=== PATIENT | female | born 1955 | race Caucasian/White ===

== ENCOUNTER 2020-08-06 10:29 | Outpatient (CLI) | payer MEDICARE, SELFPAY ==
[2020-08-06 10:57] LABS: Basophils Absolute Auto 0.1 K/mm3 (0.0-0.1); Basophils Percent Auto 0.9 % (0.2-1.2); Eosinophils Absolute Auto 0.3 K/mm3 (0-0.3); Eosinophils Percent Auto 4.5 % (0-4.4); Hematocrit 23.7 % (37.0-47.0); Immature Granulocyte Absolute 0.02 K/mm3 (0.00-0.031); Immature Granulocyte Percent A 0.3 % (0-0.5); Lymphocytes Absolute Auto 1.51 K/mm3 (0.9-3.2); Lymphocytes Percent Auto 23.4 % (18.3-44.2); Mean Corpuscular HGB Conc 27.8 g/dl (32-36); Mean Corpuscular Hemoglobin 22.8 pg (26-34); Mean Corpuscular Volume 81.7 fl (80-100); Mean Platelet Volume 9.8 fl (7.4-10.4); Monocytes Absolute Auto 0.7 K/mm3 (0.1-0.6); Monocytes Percent Auto 10.4 % (2.6-8.5); Neutrophils Absolute Auto 3.9 K/mm3 (1.3-6.7); Neutrophils Percent Auto 60.5 % (45.5-73.1); Platelet Count Result 320 k/mm3 (150-375); Red Cell Distribution Width 18.8 % (11.5-14.5); White Blood Count 6.5 K/mm3 (4.5-10.0)
[2020-08-06 11:00] LABS: Hemoglobin 6.6 g/dL (12.0-15.0)
[2020-08-06 11:01] LABS: Platelet Estimate Adequate (Adequate)
[2020-08-06 11:02] LABS: Hypochromasia 2+ (NORMAL)
[2020-08-06 11:03] LABS: Ovalocytes 1+ (NORMAL); Poikilocytosis 1+ (NORMAL)
[2020-08-06 12:28] LABS: Iron 15 ug/dL (37-170)
[2020-08-06 12:34] LABS: Alanine Aminotransferase 16 U/L (4-35); Albumin Level 3.5 g/dL (3.5-5.1); Alkaline Phosphatase 173 U/L (38-126); Anion Gap 6 mmol/L (8-16); Aspartate Amino Transferase 21 U/L (14-36); Bilirubin,Total 0.3 mg/dL (0.2-1.3); Blood Urea Nitrogen 7 mg/dL (7-17); Calcium 9.1 mg/dL (8.4-10.2); Carbon Dioxide 30 mmol/L (22-30); Chloride 103 mmol/L (98-107); Estimated Glomerular Filt Rate > 60; Glucose 76 mg/dL (65-105); Potassium 4.2 mmol/L (3.4-5.0); Sodium 139 mmol/L (137-145)
[2020-08-06 12:37] LABS: Percent Iron Saturation 4 % (20-50)
[2020-08-06 12:59] LABS: Carcinoembryonic Antigen 2.1 ng/mL (0.0-3.0)
== END 2020-08-06 10:30 | disposition home or self-care (01) ==
PROVIDERS: Visit Provider Internal Medicine Hematology & Oncology
DX: C18.2 Malignant neoplasm of ascending colon (principal)
CPT/HCPCS: 36415; 80053; 82378; 82728; 83540; 83550; 85025

== ENCOUNTER 2020-08-07 09:35 | Outpatient (RCR) | payer OTHER, MEDICARE, MEDICAID, SELFPAY ==
[2020-08-07] VITALS (9 sets, daily range): BP systolic 98–119; BP diastolic 49–60; PULSE 60–74; RESP 13–20; TEMP 36.6–37; O2SAT 97–100
[2020-08-07] MEDS: diphenhydrAMINE HCl CAP 25 MG CAPSULE PO (13:45)
[2020-08-07] MEDS: ACETAMINOPHEN 325 MG TABLET 650 MG PO (13:45)
== END 2020-11-05 23:59 | disposition home or self-care (01) ==
LOC: ANHCPCTRAN 09:35
PROVIDERS: PCP Family Medicine; Visit Provider Internal Medicine Hematology & Oncology
DX: C18.2 Malignant neoplasm of ascending colon (principal)
CPT/HCPCS: 36415; 36430; 86850; 86900; 86901; 86923; A9270; J1940; P9016

== ENCOUNTER 2020-09-02 01:25 | Day surgery (SDC) | payer MEDICARE, MEDICAID, SELFPAY ==
[2020-08-28 14:44] VITALS: BMI 37.5
--- NOTE | 2020-08-28 15:15 | PC.NURSE ---
1515 SPOKE WITH NURSE ORNELAS AT [facility] ABOUT PATIENT. INSTRUCTED CECI ON PREPARATIONS FOR PATIENT'S UPCOMING COLONOSCOPY. INSTRUCTED: ARRIVAL AND PROCEDURE TIME, HOSPITAL ENTRANCE TO USE AND PATIENT/TRANSPORTED MUST WEAR MASK, NPO STATUS AFTER MIDNIGHT BEFORE PROCEDURE DATE, MEDICATIONS TO HOLD AND INSTRUCTED TO REVIEW INSTRUCTION SHEETS FROM DR. QUIROGA'S OFFICE AND FOLLOW BOWEL PREP INSTRUCTIONS, INSTRUCTED NO JEWELRY, NO LOTION, WEAR COMFORTABLE CLOTHING. CORWIN AGUILERA
[2020-09-02 11:08] VITALS: BP 119/62; PULSE 60; RESP 16; TEMP 36.6; O2SAT 100; BMI 37.7
[2020-09-02] MEDS: LACTATED RINGERS 1,000 ML 150 ML IV CONT (11:25)
--- NOTE | 2020-09-02 12:05 | WPDHPUPDATE1 ---
History and Physical Update Update Date/Time: 09/02/20 12:05 History and Physical has been reviewed, including an updated exam of the patient. There are NO changes in the patient's condition. Risks, benefits, and alternatives have been discussed and questions answered. Patient agrees to proceed with procedure.
[2020-09-02 12:39] VITALS: BP 104/68; PULSE 63; RESP 17; O2SAT 98
[2020-09-02 12:49] VITALS: BP 120/73; PULSE 63; RESP 13; O2SAT 98
--- NOTE | 2020-09-02 13:47 | SUR.PHASEII ---
discharge note faxed to [facility] with confirmation received.
== END 2020-09-02 13:20 | disposition home or self-care (01) ==
PROVIDERS: PCP Family Medicine; Visit Provider Internal Medicine Gastroenterology
PROC: 0DJD8ZZ Inspection of Lower Intestinal Tract, Via Natural or Artificial Opening Endoscopic (ICD-10-PCS; CPT 45378; principal; 2020-09-02 12:00)
DX: D12.2 Benign neoplasm of ascending colon (principal); D64.9 Anemia, unspecified; K21.9 Gastro-esophageal reflux disease without esophagitis; K44.9 Diaphragmatic hernia without obstruction or gangrene; K64.4 Residual hemorrhoidal skin tags; I25.2 Old myocardial infarction; J44.9 Chronic obstructive pulmonary disease, unspecified; M48.00 Spinal stenosis, site unspecified; F32.9 Major depressive disorder, single episode, unspecified; Z95.0 Presence of cardiac pacemaker; Z86.73 Personal history of transient ischemic attack (TIA), and cerebral infarction without residual deficits; Z99.3 Dependence on wheelchair; Z86.718 Personal history of other venous thrombosis and embolism; Z79.01 Long term (current) use of anticoagulants; Z87.11 Personal history of peptic ulcer disease; Z80.3 Family history of malignant neoplasm of breast
CPT/HCPCS: 45385; 45380; 88305; J2704; J7120

== ENCOUNTER 2020-11-19 00:09 | Day surgery (SDC) | payer MEDICARE, MEDICAID, SELFPAY ==
[2020-11-12 10:39] VITALS: BMI 35.9
--- NOTE | 2020-11-12 10:54 | PC.NURSE ---
SPOKE WITH JOSE ALFREDO AT [facility] REGARDING ELIQUIS ORDER FROM DR. WILLS OFFICE TO HOLD 2 DAYS PRIOR-LAST DOSE 11/16/2020, ARRIVAL INFORMATION REVIEWED AND MEDS ETC.
[2020-11-19] MEDS: LACTATED RINGERS 1,000 ML 150 ML IV CONT (06:15)
[2020-11-19 06:37] VITALS: BP 120/62; PULSE 59; RESP 18; TEMP 36.6; O2SAT 98; BMI 36.1
--- NOTE | 2020-11-19 07:04 | WPDANESEPPF ---
Anes - Initial Pre Proc Eval Procedure: Operation Date: 11/19/20 07:00 Proposed Procedures p Esophagogastroduodenoscopy - Shahab Beaver MD s [facility] Capsule Endoscopy - Shahab Beaver MD Date/Time: 11/19/20 07:04 Surgeon: Shahab Beaver MD Pre Op Diagnosis: Anemia Patient Data Age: 65 Gender: F Height: 5 ft Weight: 84 kg Last Vital Signs Temp 97.8 F 11/19/20 06:37 Pulse 59 L 11/19/20 06:37 Resp 18 11/19/20 06:37 BP 120/62 11/19/20 06:37 Pulse Ox 98 11/19/20 06:37 Allergies Allergy/AdvReac Type Severity Reaction Status Date / Time aspirin Allergy Intermediate Hives Verified 11/19/20 06:32 codeine Allergy Intermediate Headache Verified 11/19/20 06:32 ibuprofen Allergy Intermediate Hives Verified 11/19/20 06:32 morphine Allergy Intermediate Hives Verified 11/19/20 06:32 NSAIDS (Non-Steroidal Allergy Intermediate Hives Verified 11/19/20 06:32 Anti-Inflamma sulfamethoxazole Allergy Intermediate Hallucinati Verified 11/19/20 06:32 [From ng Sulfamethoxazole-Trimethoprim] tetracycline Allergy Intermediate Fever Verified 11/19/20 06:32 trimethoprim Allergy Intermediate Hallucinati Verified 11/19/20 06:32 [From ng Sulfamethoxazole-Trimethoprim] Home Medications Medication Instructions Recorded Confirmed Type acetaminophen 500 mg tablet 500 mg PO TIDWMEAL 08/19/20 11/11/20 History albuterol sulfate 90 mcg/actuation 2 puff INHALATION Q4H PRN 08/19/20 11/11/20 History aerosol inhaler alprazolam 0.5 mg tablet 0.5 mg PO TID PRN 08/19/20 11/11/20 History atorvastatin 40 mg tablet 40 mg PO HS 08/19/20 11/11/20 History baclofen 20 mg tablet 20 mg PO TID 08/19/20 11/11/20 History budesonide-formoterol HFA 160 2 puff INHALATION Q12H 08/19/20 11/11/20 History mcg-4.5 mcg/actuation aerosol inhaler ferrous sulfate 325 mg (65 mg 325 mg PO DAILY 08/19/20 11/11/20 History iron) tablet fluoxetine 20 mg capsule 20 mg PO DAILY 08/19/20 11/11/20 History omeprazole 20 mg capsule,delayed 20 mg PO DAILY 08/19/20 11/11/20 History release sucralfate 1 gram tablet 2 g PO BID tablet 08/19/20 11/11/20 History tramadol 50 mg tablet 50 mg PO TID PRN 08/19/20 11/11/20 History apixaban [Eliquis] 5 mg PO BID 08/28/20 11/11/20 History ascorbate calcium (vitamin C) 500 mg PO 3XW 08/28/20 11/11/20 History cranberry extract 250 mg PO 3XW 08/28/20 11/11/20 History fluticasone propionate 1 spray INTRANASAL DAILY 08/28/20 11/11/20 History gabapentin [Neurontin] 600 mg PO TID 08/28/20 11/11/20 History hydrocortisone acetate [Anucort-HC] 25 mg [place] DAILY PRN 08/28/20 11/11/20 History meclizine 25 mg PO TID PRN 08/28/20 11/11/20 History midodrine 2.5 mg PO DAILY 08/28/20 11/11/20 History simethicone [Gas-X Extra Strength] 125 mg PO TID 08/28/20 11/11/20 History alprazolam 0.5 mg PO HS 10/25/20 11/11/20 History cetirizine [Zyrtec] 10 mg PO HS 10/25/20 11/11/20 History cholecalciferol (vitamin D3) 50 mcg PO DAILY 10/25/20 11/11/20 History [Vitamin D3] diclofenac sodium 2 g TOPICAL QID PRN 10/25/20 11/11/20 History docusate sodium [Colace] 100 mg PO DAILY 10/25/20 11/11/20 History guaifenesin [Mucinex] 600 mg PO QID 10/25/20 11/11/20 History lidocaine [Salonpas (lidocaine)] 1 patch TOPICAL DAILY 10/25/20 11/11/20 History multivitamin with minerals [Daily 1 tablet PO DAILY 10/25/20 11/11/20 History Multivitamin-Minerals] phenyleph-shark [id number] 1 applic [place] Q4H PRN 10/25/20 11/11/20 History [Preparation H] umeclidinium [Incruse Ellipta] 1 inh INHALATION DAILY 10/25/20 11/11/20 History Patient hx anesthesia problems: none Family hx anesthesia problems: none [facility] Past Medical History Medical History (Updated 08/27/20 @ 14:29 by Michelle Alarcon, FISCAL AGENT-C) Hiatal hernia History of asthma History of blood clots History of COPD History of depression History of emphysema History of gastroesophageal reflux (GERD) History of heart attack History of stomach u
--- NOTE | 2020-11-19 07:20 | PM.HPGS ---
History of Present Illness History of Present Illness Consent: Risks, benefits, and alternatives have been discussed and questions answered. Patient agrees to proceed with procedure. Chief complaint: Anemia Narrative: Solange Solorzano is a 65 year old female with anemia, unremarkable colonoscopy Review of Systems Constitutional: Constitutional: Denies headache(s) and Denies weakness Eyes: Eyes: Denies blurry vision ENT: Reports Normal hearing present, Denies headache(s) and Denies neck pain Cardiovascular: Cardiovascular: Denies chest pain and Denies dyspnea Respiratory: Respiratory: Denies dyspnea Gastrointestinal: Gastrointestinal: Reports no additional gastrointestinal complaints Genitourinary: Genitourinary: Denies dysuria Musculoskeletal: Musculoskeletal: Denies neck pain Integumentary/Breasts: Skin/Breast: Denies dry skin Neurologic: Reports Normal hearing present, Denies headache(s) and Denies weakness Psychiatric: Psychiatric: Denies anxiety Endocrine: Endocrine: Denies change in body appearance Hematologic/Lymphatic: Hematologic/Lymphatic: Denies easy bleeding Allergic/Immunologic: Allergic/Immunologic: Denies urticaria PMFSH Past Medical History Medical History (Updated 11/19/20 @ 07:39 by Shahab Beaver MD) Anemia Hiatal hernia History of asthma History of blood clots History of COPD History of depression History of emphysema History of gastroesophageal reflux (GERD) History of heart attack History of stomach ulcers History of stroke Surgical History Surgical History History of delivery History of cholecystectomy History of skin graft History of tubal ligation S/P placement of cardiac pacemaker Family History Family History Father Heart disease Emphysema/COPD Mother Breast cancer Grandparent Breast cancer Grandparent Diabetes mellitus Hypertension Social History Social History Smoking status: Never smoker Alcohol intake: never Substance use: never Substance use type: does not use Living arrangements: [facility] Meds Home Medications and Allergies Home Medications Medication Instructions Recorded Confirmed Type acetaminophen 500 mg tablet 500 mg PO TIDWMEAL 08/19/20 11/11/20 History albuterol sulfate 90 mcg/actuation 2 puff INHALATION Q4H PRN 08/19/20 11/11/20 History aerosol inhaler alprazolam 0.5 mg tablet 0.5 mg PO TID PRN 08/19/20 11/11/20 History atorvastatin 40 mg tablet 40 mg PO HS 08/19/20 11/11/20 History baclofen 20 mg tablet 20 mg PO TID 08/19/20 11/11/20 History budesonide-formoterol HFA 160 2 puff INHALATION Q12H 08/19/20 11/11/20 History mcg-4.5 mcg/actuation aerosol inhaler ferrous sulfate 325 mg (65 mg 325 mg PO DAILY 08/19/20 11/11/20 History iron) tablet fluoxetine 20 mg capsule 20 mg PO DAILY 08/19/20 11/11/20 History omeprazole 20 mg capsule,delayed 20 mg PO DAILY 08/19/20 11/11/20 History release sucralfate 1 gram tablet 2 g PO BID tablet 08/19/20 11/11/20 History tramadol 50 mg tablet 50 mg PO TID PRN 08/19/20 11/11/20 History apixaban [Eliquis] 5 mg PO BID 08/28/20 11/11/20 History ascorbate calcium (vitamin C) 500 mg PO 3XW 08/28/20 11/11/20 History cranberry extract 250 mg PO 3XW 08/28/20 11/11/20 History fluticasone propionate 1 spray INTRANASAL DAILY 08/28/20 11/11/20 History gabapentin [Neurontin] 600 mg PO TID 08/28/20 11/11/20 History hydrocortisone acetate [Anucort-HC] 25 mg [place] DAILY PRN 08/28/20 11/11/20 History meclizine 25 mg PO TID PRN 08/28/20 11/11/20 History midodrine 2.5 mg PO DAILY 08/28/20 11/11/20 History simethicone [Gas-X Extra Strength] 125 mg PO TID 08/28/20 11/11/20 History alprazolam 0.5 mg PO HS 10/25/20 11/11/20 History cetirizine [Zyrtec] 10 mg PO H
[2020-11-19] MEDS: BENZOCAINE (*SP) 60 ML SPRAY CAN (HURRICAINE) 1 SPRAY MUCOUS MEM (07:28)
[2020-11-19] MEDS: SIMETHICONE ORAL SUSPENSION 20 MG/0.3 ML 30 ML BOTTLE 1.8 ML IRRIGATION (07:32)
[2020-11-19 07:41] VITALS: BP 101/60; PULSE 60; RESP 20; O2SAT 100
[2020-11-19 07:51] VITALS: BP 103/67; PULSE 60; RESP 17; O2SAT 100
[2020-11-19 08:01] VITALS: BP 111/66; PULSE 62; RESP 20; O2SAT 100
[2020-11-19 08:11] VITALS: BP 121/64; PULSE 60; RESP 18; O2SAT 99
== END 2020-11-19 08:27 | disposition home or self-care (01) ==
PROVIDERS: PCP Family Medicine; Visit Provider Internal Medicine Gastroenterology
PROC: 0DJ08ZZ Inspection of Upper Intestinal Tract, Via Natural or Artificial Opening Endoscopic (ICD-10-PCS; CPT 43235; principal; 2020-11-19 07:00)
DX: D50.0 Iron deficiency anemia secondary to blood loss (chronic) (principal); K44.9 Diaphragmatic hernia without obstruction or gangrene; K29.70 Gastritis, unspecified, without bleeding; K21.9 Gastro-esophageal reflux disease without esophagitis; J44.9 Chronic obstructive pulmonary disease, unspecified; I25.2 Old myocardial infarction; Z95.0 Presence of cardiac pacemaker; E66.9 Obesity, unspecified; Z68.36 Body mass index [BMI] 36.0-36.9, adult
CPT/HCPCS: 43239; 88305; 91110; J2704; J7120

== ENCOUNTER 2020-12-04 11:11 | Outpatient (CLI) | payer MEDICARE, MEDICAID, SELFPAY ==
[2020-12-04 11:38] LABS: Hemoglobin 12.5 g/dL (12.0-15.0); Mean Corpuscular HGB Conc 30.5 g/dl (32-36); Mean Corpuscular Hemoglobin 27.7 pg (26-34); Mean Corpuscular Volume 90.7 fl (80-100); Mean Platelet Volume 9.7 fl (7.4-10.4); Platelet Count Result 237 k/mm3 (150-375); Red Blood Count 4.52 M/mm3 (4.2-5.4); Red Cell Distribution Width 17.1 % (11.5-14.5); White Blood Count 8.2 K/mm3 (4.5-10.0)
[2020-12-04 11:45] LABS: Blood Urea Nitrogen 8 mg/dL (8-26); Carbon Dioxide 33 mmol/L (22-30); Chloride 99 mmol/L (98-109); Estimated Glomerular Filt Rate > 60; Glucose 77 mg/dL (70-105); Potassium 4.2 mmol/L (3.5-4.9); Sodium 137 mmol/L (138-146)
[2020-12-04 16:40] LABS: Iron 57 ug/dL (37-170)
[2020-12-04 16:50] LABS: Percent Iron Saturation 18 % (20-50)
== END 2020-12-04 11:12 | disposition home or self-care (01) ==
PROVIDERS: PCP Family Medicine; Visit Provider Internal Medicine Hematology & Oncology
DX: D64.9 Anemia, unspecified (principal)
CPT/HCPCS: 36415; 80048; 82728; 83540; 83550; 85027

== ENCOUNTER 2021-01-08 08:20 | Outpatient (CLI) | payer OTHER, MEDICARE, MEDICAID, SELFPAY ==
--- NOTE | 2021-01-08 12:00 | NEURO_ITS ---
Impression: # Complains of numbness of hands. # Left mild Carpal Tunnel Syndrome. # Left ulnar neuropathy across the elbow. # Needle/EMG exam not requested. Nerve Conduction Studies Anti Sensory Summary Table Stim Site NR Peak (ms) P-T Amp (?V) Site1 Site2 Delta-P (ms) Dist (cm) Vin (m/s) Left Median Anti Sensory (2-3nd Digit) Wrist 3.8 14.5 Wrist 2-3nd Digit 3.8 14.0 37 Wrist 3.9 3.4 Wrist 2-3nd Digit 3.8 14.0 37 Right Median Anti Sensory (2-3nd Digit) Wrist 3.7 31.6 Wrist 2-3nd Digit 3.7 14.0 38 Wrist 3.8 25.5 Wrist 2-3nd Digit 3.7 14.0 38 Left Radial Anti Sensory (Base 1st Digit) Wrist 2.6 18.2 Wrist Base 1st Digit 2.6 0.0 Right Radial Anti Sensory (Base 1st Digit) Wrist 2.4 6.2 Wrist Base 1st Digit 2.4 0.0 Left Ulnar Anti Sensory (5th Digit) Wrist 2.6 50.9 Wrist 5th Digit 2.6 14.0 54 Right Ulnar Anti Sensory (5th Digit) Wrist 2.5 9.0 Wrist 5th Digit 2.5 14.0 56 Motor Summary Table Stim Site NR Onset (ms) O-P Amp (mV) Site1 Site2 Delta-0 (ms) Dist (cm) Vin (m/s) Left Median Motor (Abd Poll Brev) Wrist 4.3 4.1 Elbow Wrist 4.1 22.0 54 Elbow 8.4 2.4 Right Median Motor (Abd Poll Brev) Wrist 4.0 2.4 Elbow Wrist 4.1 21.0 51 Elbow 8.1 2.0 Left Ulnar Motor (Abd Dig Minimi) Wrist 2.3 2.9 A Elbow Wrist 4.8 22.0 46 A Elbow 7.1 1.1 B Elbow Wrist 2.7 15.0 56 B Elbow 5.0 3.7 Right Ulnar Motor (Abd Dig Minimi) Wrist 3.3 1.4 A Elbow Wrist 3.6 24.0 67 A Elbow 6.9 4.5 F Wave Studies NR F-Lat (ms) L-R F-Lat (ms) Left Median (Mrkrs) (Abd Poll Brev) 27.66 0.00 Right Median (Mrkrs) (Abd Poll Brev) 27.66 0.00 Left Ulnar (Mrkrs) (Abd Dig Min) 26.26 0.53 Right Ulnar (Mrkrs) (Abd Dig Min) 26.78 0.53 MTDD
== END 2021-01-08 08:21 | disposition home or self-care (01) ==
PROVIDERS: PCP Family Medicine; Visit Provider Family Medicine
DX: G56.02 Carpal tunnel syndrome, left upper limb (principal); G56.21 Lesion of ulnar nerve, right upper limb; R20.2 Paresthesia of skin; R20.0 Anesthesia of skin
CPT/HCPCS: 95911

== ENCOUNTER 2021-01-15 12:41 | Outpatient (CLI) | payer MEDICARE, MEDICAID, SELFPAY ==
--- NOTE | ~2021-01-15 | CT_ITS ---
EXAMINATION: CT sinus wo con DATE: 01/15/2021 13:10 INDICATION: Hypertrophy of the nasal turbinates TECHNIQUE: Computed tomography (CT) of the paranasal sinuses was performed without intravenous contra st. The dose-length product (DLP) was 271.75 mGy-cm. Iterative reconstruction was used. COMPARISON: None FINDINGS: There is normal development and pneumatization of the paranasal sinuses. There is a 1.6 x 1 .6 x 3.2 cm polyp or mucous retention cyst in the right maxillary sinus. There are 3 mm of leftward d eviation of the nasal septum. There is mild mucosal thickening of the anterior ethmoidal air cells. The frontal, sphenoid, and left maxillary maxillary sinuses are clear. The bilateral ostiomeatal comp lexes are patent. Visualized soft tissues are unremarkable. There is frontal skull hyperostosis (hype rostosis frontalis interna), a normal variant. Multiple dental caries are noted. IMPRESSION: 1. Sinus disease as described above. Reviewed, dictated and finalized at location A. K SETTER OPERATOR
== END 2021-01-15 12:42 | disposition home or self-care (01) ==
PROVIDERS: PCP Family Medicine; Visit Provider Otolaryngology
DX: J34.2 Deviated nasal septum (principal); J34.3 Hypertrophy of nasal turbinates; J34.89 Other specified disorders of nose and nasal sinuses; R09.81 Nasal congestion; R44.8 Other symptoms and signs involving general sensations and perceptions; R51.9 Headache, unspecified
CPT/HCPCS: 70486

== ENCOUNTER → 2021-01-30 15:05 | Outpatient (REF) | payer OTHER, MEDICARE, MEDICAID, SELFPAY | LOC: ANHLAB 15:05 | PROVIDERS: PCP Family Medicine; Visit Provider Nurse Practitioner | DX: C44.319 Basal cell carcinoma of skin of other parts of face (principal) | CPT/HCPCS: 88305 ==

== ENCOUNTER 2021-02-10 13:38 | Outpatient (CLI) | payer MEDICARE, MEDICAID, SELFPAY ==
--- NOTE | ~2021-02-10 | CT_ITS ---
EXAMINATION: CT cervical spine wo con EXAM DATE: 02/10/2021 14:09 INDICATION: Hand numbness. TECHNIQUE: Spiral CT of the cervical spine was performed without contrast. Axial images were reviewe d. Coronal and sagittal reformatted images were also reviewed. The dose-length product (DLP) for thi s examination was 451.55 mGy-cm. The exposure was tailored according to patient size (auto mA exposu re control), and iterative reconstruction (ASIR) was used as additional dose reduction technique. [facility] is no prior study for comparison. FINDINGS: Pacemaker/AICD device. There is an oblong sclerotic region in C6 measuring 5 mm. There is 3 mm sclerotic focus in the odontoid process. Probably bone islands but can't totally exclude osteobl astic disease. There is fusion of the C3 and 4 vertebral bodies and facet joints. There is 2 mm anter olisthesis C2 on C3, 3 mm anterolisthesis C4 on C5, 2 mm anterolisthesis C7 on T1, 2 mm retrolisthesi s C5 on C6. There is moderate to severe disc disease C5-6 and 6-7, moderate disc disease at C4-5 and C7-T1. There are no acute fractures identified. The odontoid process is intact. The lateral masses o f C1 line up with C2. Paraspinal soft tissue is unremarkable. Level by level evaluation: C2-C3: There is a mild diffuse disc bulge. Uncovertebral joint arthropathy: Mild to moderate left, mild right. Facet joint arthropathy: Severe bilateral. Neural foraminal stenosis: Severe left, moderate to severe right. Central canal stenosis: Mild. C3-C4: This level is fused. Uncovertebral joint arthropathy: Moderate right, mild to moderate left. Facet joint arthropathy: Moderate but fused. Neural foraminal stenosis: Moderate bilateral. Central canal stenosis: No stenosis. C4-C5: There is a mild diffuse disc bulge. Uncovertebral joint arthropathy: Moderate right, mild to moderate left. Facet joint arthropathy: Severe right, moderate to severe left. Neural foraminal stenosis: Severe right, moderate to severe left. Central canal stenosis: Mild. C5-C6: There is a mild to moderate diffuse disc bulge. Uncovertebral joint arthropathy: Severe right, moderate left. Facet joint arthropathy: Moderate bilateral. Neural foraminal stenosis: Severe right, moderate to severe left. Central canal stenosis: Mild to moderate . Central canal measures 6 mm in mid sagittal AP diameter . C6-C7: There is a mild diffuse disc bulge. Uncovertebral joint arthropathy: Moderate bilateral. Facet joint arthropathy: Mild to moderate bilateral. Neural foraminal stenosis: Moderate to severe right, moderate left. Central canal stenosis: Mild. C7-T1: There is a moderate diffuse disc bulge. Uncovertebral joint arthropathy: Mild to moderate bilateral. Facet joint arthropathy: Moderate to severe bilateral. Neural foraminal stenosis: Moderate bilateral, right greater than left. Central canal stenosis: Mild to moderate . Central canal measures 6 mm in mid sagittal AP diameter . IMPRESSION: 1. Severe cervical spondylosis. 2. Two small sclerotic foci most likely bone islands, can't totally exclude osteoblastic disease. Reviewed, dictated and finalized at location A. IMPRESSION: 1. Severe cervical spondylosis. 2. Two small sclerotic foci most likely bone islands, can't totally exclude os teoblastic disease.
== END 2021-02-10 13:39 | disposition home or self-care (01) ==
PROVIDERS: PCP Family Medicine; Visit Provider Orthopaedic Surgery
DX: R20.2 Paresthesia of skin (principal); M47.892 Other spondylosis, cervical region
CPT/HCPCS: 72125

== ENCOUNTER → 2021-02-24 10:31 | Outpatient (REF) | payer MEDICARE, MEDICAID, SELFPAY | LOC: ANHLAB 10:31 | PROVIDERS: PCP Family Medicine; Visit Provider Nurse Practitioner | DX: C44.319 Basal cell carcinoma of skin of other parts of face (principal) | CPT/HCPCS: 88305; 88331 ==

== ENCOUNTER 2021-07-31 10:09 | Outpatient (CLI) | payer MEDICARE, MEDICAID, SELFPAY ==
[2021-07-31 10:34] LABS: Basophils Percent Auto 0.3 % (0.2-1.2); Eosinophils Absolute Auto 0.4 K/mm3 (0-0.3); Eosinophils Percent Auto 3.1 % (0-4.4); Hematocrit 36.3 % (37.0-47.0); Hemoglobin 11.4 g/dL (12.0-15.0); Immature Granulocyte Absolute 0.05 K/mm3 (0.00-0.031); Immature Granulocyte Percent A 0.4 % (0-0.5); Lymphocytes Absolute Auto 0.71 K/mm3 (0.9-3.2); Lymphocytes Percent Auto 5.7 % (18.3-44.2); Mean Corpuscular HGB Conc 31.4 g/dl (32-36); Mean Corpuscular Hemoglobin 29.4 pg (26-34); Mean Corpuscular Volume 93.6 fl (80-100); Mean Platelet Volume 9.3 fl (7.4-10.4); Monocytes Absolute Auto 0.8 K/mm3 (0.1-0.6); Monocytes Percent Auto 6.8 % (2.6-8.5); Neutrophils Absolute Auto 10.4 K/mm3 (1.3-6.7); Neutrophils Percent Auto 83.7 % (45.5-73.1); Platelet Count Result 185 k/mm3 (150-375); Red Blood Count 3.88 M/mm3 (4.2-5.4); Red Cell Distribution Width 15.9 % (11.5-14.5); White Blood Count 12.4 K/mm3 (4.5-10.0)
[2021-07-31 10:36] LABS: Blood Urea Nitrogen 14 mg/dL (8-26); Carbon Dioxide 28 mmol/L (22-30); Chloride 96 mmol/L (98-109); Estimated Glomerular Filt Rate > 60; Glucose 85 mg/dL (70-105); Potassium 3.8 mmol/L (3.5-4.9); Sodium 139 mmol/L (138-146)
[2021-07-31 13:23] LABS: Iron 37 ug/dL (37-170)
[2021-07-31 13:33] LABS: Percent Iron Saturation 15 % (20-50)
== END 2021-07-31 10:10 | disposition home or self-care (01) ==
PROVIDERS: PCP Family Medicine; Visit Provider Internal Medicine Hematology & Oncology
DX: D64.9 Anemia, unspecified (principal)
CPT/HCPCS: 36415; 80048; 82728; 83540; 83550; 85025

== ENCOUNTER 2021-08-06 09:54 | Outpatient (CLI) | payer MEDICARE, MEDICAID, SELFPAY ==
--- NOTE | ~2021-08-06 | CT_ITS ---
EXAMINATION: CT abdomen pelvis w con DATE: 08/06/2021 10:49 INDICATION: Rectal bleeding TECHNIQUE: Computed tomography (CT) of the abdomen and pelvis was performed with 100 cc Omnipaque 350 intravenous contrast. Automated exposure control and iterative reconstruction technique were employe d. Exam dose: 1168.20 mGy-cm total exam DLP. COMPARISON: None. FINDINGS: There is mild patchy left lower lobe infiltrate and bilateral lower lobe discoid atelectasi s or scarring. Right atrial and right ventricular pacemaker leads. Borderline heart size. No pericardial or pleural effusion. Large hiatal hernia containing the majority of the stomach. No hepatic space-occupying mass lesion. The gallbladder is absent. No bile duct or pancreatic duct di latation. No pancreatic mass lesion or calcification is evident. Duodenal diverticulum. Normal splenic size. Normal morphology of the adrenal glands. There are several right renal cysts measuring up to 1 cm maximal dimension. No solid mass lesion of e ither kidney is evident. No urinary tract calculus or hydroureteronephrosis. Occasional small urinary bladder diverticula are noted. No bladder mass lesion or bladder wall thickening is evident. Normal caliber of the abdominal aorta. IVC filter below the level of the renal veins. No intraperiton eal or retroperitoneal or pelvic mass lesion or adenopathy or ascites. The uterus and adnexal areas are unremarkable. There is prominent partially enhancing soft tissue mass at the medial aspect of the left gluteal fold extending into the anal region, readily available to direct visualization. Differential diagnosis in cludes hemorrhoidal tissue versus anal carcinoma. No bowel obstruction, bowel wall thickening, pneumatosis or intraperitoneal free air is detected. Compression fracture deformities of T11 and T12. There is severe degenerative disc disease of the lumbar and lumbosacral spine. There is partial fusio n at L2-3 intervertebral space. IMPRESSION: Prominent enhancing soft tissue lesion at the medial left gluteal fold, extending into t he anal area of subtle diffusion diagnosis includes hemorrhoidal tissue versus anal carcinoma. Direct visualization is recommended Large hiatal hernia containing the majority of the stomach Status post cholecystectomy 1 cm and smaller right renal cysts IVC filter. Reviewed, dictated and finalized at Location [facility]. Reviewed, dictated and finalized at location B. IMPRESSION: Prominent enhancing soft tissue lesion at the medial left gluteal fold, extending into the anal area of subtle diffusion diagnosis includes hemor rhoidal tissue versus anal carcinoma. Direct visualization is recommended Large hiatal hernia containing the majority of the stomach Status post cholecystectomy 1 cm and smaller right renal cysts IVC filter.
== END 2021-08-06 09:55 | disposition home or self-care (01) ==
LOC: ANHIMG 10:01
PROVIDERS: PCP Family Medicine; Visit Provider Internal Medicine Hematology & Oncology
DX: K62.5 Hemorrhage of anus and rectum (principal); K44.9 Diaphragmatic hernia without obstruction or gangrene; Z90.49 Acquired absence of other specified parts of digestive tract; N28.1 Cyst of kidney, acquired
CPT/HCPCS: 74177; Q9967

== ENCOUNTER 2021-10-06 01:38 | Day surgery (SDC) | payer MEDICARE, MEDICAID, SELFPAY ==
[2021-10-06 10:31] VITALS: BP 124/93; PULSE 58; RESP 16; TEMP 36.2; O2SAT 94; BMI 36.6
[2021-10-06] MEDS: LACTATED RINGERS 1,000 ML 150 ML IV CONT (10:40)
--- NOTE | 2021-10-06 10:54 | PM.HPGS ---
History of Present Illness History of Present Illness Consent: Risks, benefits, and alternatives have been discussed and questions answered. Patient agrees to proceed with procedure. Chief complaint: Rectal Bleeding Narrative: Solange Solorzano is a 66 year old female here for sigmoidoscopy, she has a known rectal prolapse with hemorrhoids also evaluated by [facility] in [place] and recommended medical treatment. Recent CT scan showed prominent enhancing soft tissue lesion at the medial left gluteal fold, extending into the anal area of subtle diffusion diagnosis includes hemorrhoidal tissue versus anal carcinoma. She had colonoscopy 2020 with hemorrhoids, egd and SB capsule negative to explain anemia earlier this year. Review of Systems Constitutional: Constitutional: Denies headache(s) and Denies weakness Eyes: Eyes: Denies blurry vision ENT: Reports Normal hearing present, Denies headache(s) and Denies neck pain Cardiovascular: Cardiovascular: Denies chest pain and Denies dyspnea Respiratory: Respiratory: Denies dyspnea Gastrointestinal: Gastrointestinal: Reports no additional gastrointestinal complaints Genitourinary: Genitourinary: Denies dysuria Musculoskeletal: Musculoskeletal: Denies neck pain Integumentary/Breasts: Skin/Breast: Denies dry skin Neurologic: Reports Normal hearing present, Denies headache(s) and Denies weakness Psychiatric: Psychiatric: Denies anxiety Endocrine: Endocrine: Denies change in body appearance Hematologic/Lymphatic: Hematologic/Lymphatic: Denies easy bleeding Allergic/Immunologic: Allergic/Immunologic: Denies urticaria PMFSH Past Medical History Medical History (Updated 09/10/21 @ 11:26 by Mariola Baldwin) Abdominal pain Abnormal CT scan Anemia Anxiety Bloating BMI 39.0-39.9,adult Constipation Hemorrhoids that prolapse with straining, but retract spontaneously Hiatal hernia History of asthma History of blood clots History of COPD History of depression History of emphysema History of gastroesophageal reflux (GERD) History of heart attack History of stomach ulcers History of stroke Iron deficiency anemia Numbness of left hand Surgical History Surgical History History of delivery History of cholecystectomy History of skin graft History of tubal ligation S/P placement of cardiac pacemaker Family History Family History Father Heart disease Emphysema/COPD Mother Breast cancer Grandparent Breast cancer Grandparent Diabetes mellitus Hypertension Social History Social History Smoking status: Never smoker Alcohol intake: never Substance use: never Substance use type: does not use Living arrangements: residential Gender identity (if verbalized by the patient): Female Spiritual care concerns: No Meds Home Medications and Allergies Home Medications Medication Instructions Recorded Confirmed Type acetaminophen 500 mg tablet 1,000 mg PO TIDWMEAL 08/19/20 09/29/21 History albuterol sulfate 90 mcg/actuation 2 puff INHALATION Q4H PRN 08/19/20 09/29/21 History aerosol inhaler atorvastatin 40 mg tablet 40 mg PO HS 08/19/20 09/29/21 History baclofen 20 mg tablet 20 mg PO TID 08/19/20 09/29/21 History budesonide-formoterol HFA 160 2 puff INHALATION Q12H 08/19/20 09/29/21 History mcg-4.5 mcg/actuation aerosol inhaler ferrous sulfate 325 mg (65 mg 325 mg PO TID 08/19/20 09/29/21 History iron) tablet fluoxetine 20 mg capsule 20 mg PO BID 08/19/20 09/29/21 History sucralfate 1 gram tablet 2 g PO BID tablet 08/19/20 09/29/21 History apixaban [Eliquis] 5 mg PO BID 08/28/20 09/29/21 History ascorbate calcium (vitamin C) 500 mg PO 3XW 08/28/20 09/29/21 History cranberry extract 250 mg PO 3XW 08/28/20 09/29/21 History aline
--- NOTE | 2021-10-06 11:02 | WPDANESEPPF ---
Anes - Initial Pre Proc Eval Procedure: Operation Date: 10/06/21 11:00 Proposed Procedures p Flexible Sigmoidoscopy - Shahab Beaver MD Date/Time: 10/06/21 11:02 Surgeon: Shahab Beaver MD Pre Op Diagnosis: Rectal Bleeding Patient Data Age: 66 Gender: F Height: 1.52 m Weight: 85 kg Last Vital Signs Temp 97.2 F L 10/06/21 10:31 Pulse 58 L 10/06/21 10:31 Resp 16 10/06/21 10:31 BP 124/93 H 10/06/21 10:31 Pulse Ox 94 10/06/21 10:31 Allergies Allergy/AdvReac Type Severity Reaction Status Date / Time aspirin Allergy Intermediate Hives Verified 08/28/21 11:28 ibuprofen Allergy Intermediate Hives Verified 08/28/21 11:28 morphine Allergy Intermediate Hives Verified 08/28/21 11:28 NSAIDS (Non-Steroidal Allergy Intermediate Hives Verified 08/28/21 11:28 Anti-Inflamma codeine AdvReac Intermediate Headache Verified 10/06/21 07:27 sulfamethoxazole AdvReac Intermediate Hallucinati Verified 10/06/21 07:27 [From ng Sulfamethoxazole-Trimethoprim] tetracycline AdvReac Intermediate Fever Verified 10/06/21 07:27 trimethoprim AdvReac Intermediate Hallucinati Verified 10/06/21 07:27 [From ng Sulfamethoxazole-Trimethoprim] Home Medications Medication Instructions Recorded Confirmed Type acetaminophen 500 mg tablet 1,000 mg PO TIDWMEAL 08/19/20 09/29/21 History albuterol sulfate 90 mcg/actuation 2 puff INHALATION Q4H PRN 08/19/20 09/29/21 History aerosol inhaler atorvastatin 40 mg tablet 40 mg PO HS 08/19/20 09/29/21 History baclofen 20 mg tablet 20 mg PO TID 08/19/20 09/29/21 History budesonide-formoterol HFA 160 2 puff INHALATION Q12H 08/19/20 09/29/21 History mcg-4.5 mcg/actuation aerosol inhaler ferrous sulfate 325 mg (65 mg 325 mg PO TID 08/19/20 09/29/21 History iron) tablet fluoxetine 20 mg capsule 20 mg PO BID 08/19/20 09/29/21 History sucralfate 1 gram tablet 2 g PO BID tablet 08/19/20 09/29/21 History apixaban [Eliquis] 5 mg PO BID 08/28/20 09/29/21 History ascorbate calcium (vitamin C) 500 mg PO 3XW 08/28/20 09/29/21 History cranberry extract 250 mg PO 3XW 08/28/20 09/29/21 History gabapentin [Neurontin] 600 mg PO TID 08/28/20 09/29/21 History hydrocortisone acetate [Anucort-HC] 25 mg UT DAILY PRN 08/28/20 09/29/21 History meclizine 25 mg PO TID PRN 08/28/20 09/29/21 History midodrine 2.5 mg PO DAILY 08/28/20 09/29/21 History simethicone [Gas-X Extra Strength] 125 mg PO TID 08/28/20 09/29/21 History cholecalciferol (vitamin D3) 50 mcg PO DAILY 10/25/20 09/29/21 History [Vitamin D3] diclofenac sodium 2 g TOPICAL QID PRN 10/25/20 09/29/21 History docusate sodium [Colace] 100 mg PO BID 10/25/20 09/29/21 History lidocaine [Salonpas (lidocaine)] 1 patch TOPICAL DAILY 10/25/20 09/29/21 History multivitamin with minerals [Daily 1 tablet PO DAILY 10/25/20 09/29/21 History Multivitamin-Minerals] phenyleph-shark [id number] 1 applic UT Q4H PRN 10/25/20 09/29/21 History [Preparation H] umeclidinium [Incruse Ellipta] 1 inh INHALATION DAILY 10/25/20 09/29/21 History levocetirizine 5 mg tablet 5 mg PO DAILY 12/09/20 09/29/21 History montelukast 10 mg tablet 10 mg PO DAILY 12/09/20 09/29/21 History nystatin 100,000 unit/gram topical 1 applic TOPICAL BID 12/09/20 09/29/21 History powder linaclotide 72 mcg capsule 72 mcg PO DAILY #30 cap 03/27/21 09/29/21 Rx dextran 70-hypromellose 0.1 %-0.3 2 drp OPHTHALMIC (EYE) Q12H PRN 05/20/21 09/29/21 History % eye drops pantoprazole 40 mg tablet,delayed 40 mg PO BID 08/28/21 09/29/21 History release alprazolam [Xanax] 0.5 mg PO TID 09/29/21 09/29/21 History bisacodyl 20 mg PO ONCE PRN 09/29/21 09/29/21 History calcium carbonate [Tums 500] 1,000 mg PO Q8H PRN 09/29/21 09/29/21 History fluticasone propionate [Flonase 2 spray INTRANASAL QAM 09/29/21 09/29/21 History Allergy Relief] ondansetron 8 mg PO Q8H PRN 09/29/21 09/29/21 History polyethylene glycol 3350 17 g PO DAILY PRN 09/29/21 09/29/21 History
[2021-10-06 11:17] VITALS: BP 92/53; PULSE 60; RESP 17; O2SAT 95
[2021-10-06 11:27] VITALS: BP 100/55; PULSE 60; RESP 20; O2SAT 94
[2021-10-06 11:37] VITALS: BP 105/66; PULSE 59; RESP 20; O2SAT 93
== END 2021-10-06 11:57 | disposition home or self-care (01) ==
PROVIDERS: PCP Family Medicine; Visit Provider Internal Medicine Gastroenterology
PROC: 0DJD8ZZ Inspection of Lower Intestinal Tract, Via Natural or Artificial Opening Endoscopic (ICD-10-PCS; CPT 45330; principal; 2021-10-06 11:00)
DX: K62.3 Rectal prolapse (principal); K92.1 Melena; K64.8 Other hemorrhoids; J44.9 Chronic obstructive pulmonary disease, unspecified; K21.9 Gastro-esophageal reflux disease without esophagitis; F41.9 Anxiety disorder, unspecified; D50.9 Iron deficiency anemia, unspecified; I25.2 Old myocardial infarction; Z79.51 Long term (current) use of inhaled steroids; Z79.01 Long term (current) use of anticoagulants; Z86.718 Personal history of other venous thrombosis and embolism; Z95.0 Presence of cardiac pacemaker; E66.9 Obesity, unspecified; Z68.36 Body mass index [BMI] 36.0-36.9, adult
CPT/HCPCS: 45330; J2704; J7120

== ENCOUNTER 2021-10-14 10:07 | Outpatient (CLI) | payer MEDICARE, MEDICAID, SELFPAY ==
[2021-10-14 10:31] LABS: Basophils Percent Auto 0.4 % (0.2-1.2); Eosinophils Absolute Auto 0.4 K/mm3 (0-0.3); Eosinophils Percent Auto 4.8 % (0-4.4); Hematocrit 42.2 % (37.0-47.0); Hemoglobin 12.7 g/dL (12.0-15.0); Immature Granulocyte Absolute 0.02 K/mm3 (0.00-0.031); Immature Granulocyte Percent A 0.2 % (0-0.5); Lymphocytes Absolute Auto 1.14 K/mm3 (0.9-3.2); Lymphocytes Percent Auto 12.8 % (18.3-44.2); Mean Corpuscular HGB Conc 30.1 g/dl (32-36); Mean Corpuscular Volume 99.5 fl (80-100); Mean Platelet Volume 10.3 fl (7.4-10.4); Monocytes Absolute Auto 0.5 K/mm3 (0.1-0.6); Monocytes Percent Auto 5.6 % (2.6-8.5); Neutrophils Absolute Auto 6.8 K/mm3 (1.3-6.7); Neutrophils Percent Auto 76.2 % (45.5-73.1); Platelet Count Result 200 k/mm3 (150-375); Red Blood Count 4.24 M/mm3 (4.2-5.4); Red Cell Distribution Width 17.8 % (11.5-14.5); White Blood Count 8.9 K/mm3 (4.5-10.0)
[2021-10-14 10:35] LABS: Blood Urea Nitrogen 11 mg/dL (8-26); Carbon Dioxide 28 mmol/L (22-30); Chloride 101 mmol/L (98-109); Estimated Glomerular Filt Rate > 60; Glucose 92 mg/dL (70-105); Potassium 4.4 mmol/L (3.5-4.9); Sodium 140 mmol/L (138-146)
[2021-10-14 11:58] LABS: Iron 52 ug/dL (37-170)
[2021-10-14 12:08] LABS: Percent Iron Saturation 24 % (20-50)
== END 2021-10-14 10:08 | disposition home or self-care (01) ==
LOC: ANHLAB 10:11
PROVIDERS: PCP Family Medicine; Visit Provider Internal Medicine Hematology & Oncology
DX: D64.9 Anemia, unspecified (principal)
CPT/HCPCS: 36415; 80048; 82374; 82435; 82565; 82728; 82947; 83540; 83550; 84132; 84295; 84520; 85025

== ENCOUNTER 2022-08-04 09:40 | Outpatient (CLI) | payer MEDICARE, MEDICAID, SELFPAY ==
--- NOTE | ~2022-08-04 | CT_ITS ---
EXAMINATION: CT abdomen pelvis w con INDICATION: Right upper quadrant pain TECHNIQUE: Computed tomographic images of the abdomen and pelvis were obtained after the administrati on of 100 cc of Omnipaque 350 intravenous contrast. The dose-length product (DLP) was 1033.22 mGy-cm. Automated exposure control and iterative reconstruction technique were employed. COMPARISON: 08/06/2021 FINDINGS: Minimal dependent atelectasis is present in the lung bases. The heart size is normal. There is a large hiatal hernia containing nearly the entire stomach. Punctate calcifications in an otherwi se normal spleen likely represent healed granulomatous disease. The gallbladder is surgically absent. The liver, pancreas, and adrenal glands are normal. An IVC filter is noted. Cysts of the right kidne y measure up to 1.3 cm. The left kidney is unremarkable. No pathologically enlarged abdominal or pelv ic lymph nodes are identified. There is no free intraperitoneal gas or evidence of bowel obstruction. There is severe lumbar spondylosis. Enhancement is again noted near the anus which could reflect hem orrhoids. Direct visualization is recommended. IMPRESSION: 1. Large hiatal hernia containing nearly the entire stomach. Reviewed, dictated and finalized at location A.
[2022-08-04 11:19] LABS: Estimated Glomerular Filt Rate > 60
== END 2022-08-04 09:41 | disposition home or self-care (01) ==
PROVIDERS: PCP Family Medicine; Visit Provider Family Medicine
DX: R10.11 Right upper quadrant pain (principal); K44.9 Diaphragmatic hernia without obstruction or gangrene
CPT/HCPCS: 74177; Q9967

== ENCOUNTER 2022-12-14 09:02 | Outpatient (CLI) | payer MEDICARE, MEDICAID, SELFPAY ==
--- NOTE | 2022-12-14 11:00 | NEURO_ITS ---
Impression: # 67 year old with quadriparesis of long duration. # Normal motor and sensory nerve conduction study. # Needle/EMG exam abnormal with decreased motor unit potentials in upper and lower extremities but no fibrillations, fasciculations or myotonia. # Findings suggestive of upper motor neuron lesions. MRI of C/T spine needed. Motor Nerve Conduction Upper Extremities Median Nerve Conduction Velocity (m/sec) Terminal Latency (msec) Response Voltage(mV) Elbow-Wrist Wrist Elbow Wrist Right 56 3.9 4 5 Left 54 3.9 5 5 Ulnar Nerve Conduction Velocity (m/sec) Terminal Latency (msec) Response Voltage(mV) Above Elbow Below Elbow Wrist Above Elbow Below Elbow Wrist Right 55 2.3 2 4 Left 55 2.3 4 4 F-Wave Latency Median (ms) Ulnar (ms) Right 27.2 26.6 Left 27.5 27.3 Sensory Nerve Conduction Upper Extremities Median Nerve Stimulation Terminal Latency (msec) Wrist/Digit Response Voltage (uV) Wrist Right 3.7/3.6 22/12 Left 3.4/3.6 27/26 Ulnar Nerve Stimulation Terminal Latency (msec) Wrist/Digit Response Voltage (uV) Wrist Right 2.4 18 Left 2.1 24 Radial Nerve Terminal Latency (msec) Response Voltage(mV) Right 2.2 15 Left 2.4 20 Left Right Muscles Examined Fibrillation Fasciculation Scarcity Voltage Duration Left Right Left Right Left Right Left Right Left Right Deltoid Biceps X X Brachioradialis Reduced Reduced Triceps X X Pronator Teres Reduced Reduced X X Ext Indicis Reduced Reduced X X Ext Digitorum Reduced Reduced X X Abd Poll Brev Reduced Reduced X X 1st Dorsal Interosseus Reduced Reduced Paraspinals Motor Nerve Conduction Lower Extremities Peroneal Nerve Conduction Velocity (m/sec) Terminal Latency (msec) Response Voltage(mV) Popliteal space-Ankle Ankle Extensor Dig Brevis Popliteal space Ankle Right 38 5.5 1 2 Left NR NR NR NR Tibial Nerve Conduction Velocity (m/sec) Terminal Latency (msec) Response Voltage(mV) Popliteal space-Ankle Ankle-Extensor Dig Brevis Popliteal space Ankle Right NR NR NR NR Left NR NR NR NR F-waves Peroneal Nerve (ms) Tibial Nerve (ms) Right 57.9 Dispersed Response Left NR Dispersed Response Sensory Nerve Conduction Lower Extremities Sural Nerve Stimulation Terminal Latency (msec) Ankle Response Voltage (uV) Ankle Response Velocity (m/sec) Right NR NR NR Left NR NR NR Superficial Peroneal Nerve Stimulation Terminal Latency (msec) Ankle Response Voltage (uV) Ankle Response Velocity (m/sec) Right 3.2 5 50 Left NR NR NR Left Right Muscles Examined Fibrillation Fasciculation Scarcity Voltage Duration Left Right Left Right Left Right Left Right Left Right X X Ant Tibialis Reduced Reduced X X Gastroc Reduced Reduced X X Fibularis Long Reduced Reduced X X Flex Dig Long Reduced Reduced X X Ext Dig Brev Re
== END 2022-12-14 09:03 | disposition home or self-care (01) ==
LOC: ANHNEURO 09:03
PROVIDERS: PCP Family Medicine; Visit Provider Family Medicine
DX: R20.2 Paresthesia of skin (principal); R53.1 Weakness
CPT/HCPCS: 95886; 95913

== ENCOUNTER 2023-07-27 04:21 | Observation (INO) | payer MEDICARE, MEDICAID, SELFPAY ==
[2023-07-27] VITALS (18 sets, daily range): BP systolic 96–156; BP diastolic 58–91; PULSE 74–93; RESP 14–21; TEMP 36.1–36.6; O2SAT 94–100; BMI 31.8
--- NOTE | ~2023-07-27 | CT_ITS ---
CT of the Abdomen and Pelvis: Indication: GI bleed Technique: 2.5 mm axial scans were obtained through the abdomen and pelvis following intravenous adm inistration of 100 cc of Omnipaque 350. Dose reduction technique was used on this scan by utilizing a utomated exposure control and iterative reconstruction technique. The dose-length product (DLP) was 9 98.63 mGy-cm. COMPARISON: 08/04/2022 Findings: Scans through the lung bases demonstrate large hiatal hernia, containing most of the stoma ch. There is focal hyperdense material in the posterior aspect of the gastric fundal region (axial im ages 27-34). The liver, spleen, pancreas, adrenals and kidneys are within normal limits. Gallbladder not visualize d. There are atherosclerotic calcifications of the aorta. IVC filter present. No lymphadenopathy. Possible small amount of hyperdense material within the rectum, which could reflect GI bleeding. No b owel obstruction. No abscess or free air. Images through the pelvis were performed. Small urinary bladder diverticula are present. No adnexal m ass evident. No ascites. Impression: Large hiatal hernia containing most of the stomach. Focal hyperintense areas within the gastric lumen at the gastric fundus region. Diagnostic considerations include active GI bleeding at the gastric fu ndus versus possibly hyperdense ingested material. Correlate clinically. Possible small amount of hyperdense material within the rectum, which could reflect hyperdense stool versus possibly GI bleeding. Correlate clinically. Reviewed, dictated and finalized at [facility]. Impression: Large hiatal hernia containing most of the stomach. Focal hyperintense areas wi thin the gastric lumen at the gastric fundus region. Diagnostic considerations include active GI bleeding at the gastric fundus versus possibly hyperdense ing ested material. Correlate clinically. Possible small amount of hyperdense material within the rectum, which could ref lect hyperdense stool versus possibly GI bleeding. Correlate clinically.
[2023-07-27] MEDS: PANTOPRAZOLE SODIUM IV 40 MG VIAL IV PUSH ×2 (04:50→21:27)
[2023-07-27] MEDS: ONDANSETRON INJ 4 MG/2 ML VIAL IV PUSH (04:51)
[2023-07-27 05:08] LABS: Basophils Absolute Auto 0.1 K/mm3 (0.0-0.1); Basophils Percent Auto 0.7 % (0.2-1.2); Eosinophils Absolute Auto 0.4 K/mm3 (0-0.3); Eosinophils Percent Auto 5.9 % (0-4.4); Hemoglobin 11.4 g/dL (12.0-15.0); Immature Granulocyte Absolute 0.01 K/mm3 (0.00-0.031); Immature Granulocyte Percent A 0.1 % (0-0.5); Lymphocytes Absolute Auto 1.67 K/mm3 (0.9-3.2); Lymphocytes Percent Auto 24.8 % (18.3-44.2); Mean Corpuscular HGB Conc 31.7 g/dl (32-36); Mean Corpuscular Hemoglobin 31.5 pg (26-34); Mean Corpuscular Volume 99.4 fl (80-100); Mean Platelet Volume 9.5 fl (7.4-10.4); Monocytes Absolute Auto 0.5 K/mm3 (0.1-0.6); Monocytes Percent Auto 6.7 % (2.6-8.5); Neutrophils Absolute Auto 4.2 K/mm3 (1.3-6.7); Neutrophils Percent Auto 61.8 % (45.5-73.1); Platelet Count Result 205 k/mm3 (150-375); Red Blood Count 3.62 M/mm3 (4.2-5.4); White Blood Count 6.7 K/mm3 (4.5-10.0)
[2023-07-27 05:18] LABS: Prothrombin Time 13.6 Seconds (11.1-14.7)
[2023-07-27 05:19] LABS: Partial Thromboplastin Time 26.7 SECONDS (22.3-36.8)
[2023-07-27 05:20] LABS: Alanine Aminotransferase 22 U/L (6-35); Albumin Level 3.5 g/dL (3.5-5.1); Alkaline Phosphatase 88 U/L (38-126); Anion Gap 4 mmol/L (8-16); Aspartate Amino Transferase 27 U/L (14-36); Bilirubin,Total 0.3 mg/dL (0.2-1.3); Blood Urea Nitrogen 32 mg/dL (7-17); Calcium 9.1 mg/dL (8.4-10.2); Carbon Dioxide 33 mmol/L (22-30); Chloride 101 mmol/L (98-107); Estimated CRCL calculation 61 ml/min; Estimated Glomerular Filt Rate > 60; Glucose 93 mg/dL (65-110); Potassium 4.1 mmol/L (3.4-5.0); Sodium 138 mmol/L (137-145)
--- NOTE | 2023-07-27 06:03 | ED.GIBLEED ---
HPI - GI Bleed General Chief complaint: GI Bleed Stated complaint: GI BLEED Time Seen by Provider: 07/27/23 05:30 History of Present Illness HPI Narrative: Patient presents to the emergency department after vomiting coffee ground emesis at home. She states she had similar symptoms a few weeks ago however they resolved on their own. She was diagnosed with a stomach ulcer years ago but has not had any problems since. Patient overall does not feel well is diaphoretic and has epigastric discomfort. She was brought into the emergency department from a nursing facility. Related Data Home Medications Medication Instructions Recorded Confirmed acetaminophen 500 mg tablet 1,000 mg PO TIDWMEAL 08/19/20 01/04/23 (Tylenol Extra Strength) albuterol sulfate 90 mcg/actuation 2 puff inhalation Q4H PRN Wheezing 08/19/20 01/04/23 aerosol inhaler atorvastatin 40 mg tablet 40 mg PO HS 08/19/20 01/04/23 budesonide-formoterol HFA 160 2 puff inhalation Q12H 08/19/20 01/04/23 mcg-4.5 mcg/actuation aerosol inhaler (Symbicort) ferrous sulfate 325 mg (65 mg 325 mg PO TID 08/19/20 01/04/23 iron) tablet sucralfate 1 gram tablet (Carafate) 2 g PO BID 08/19/20 01/04/23 apixaban 5 mg tablet (Eliquis) 5 mg PO BID 08/28/20 01/04/23 ascorbate calcium (vitamin C) 500 500 mg PO 3XW 08/28/20 01/04/23 mg tablet cranberry extract 250 mg tablet 250 mg PO 3XW 08/28/20 01/04/23 gabapentin 600 mg tablet 600 mg PO TID 08/28/20 01/04/23 (Neurontin) meclizine 25 mg tablet 25 mg PO TID PRN Dizziness 08/28/20 01/04/23 midodrine 2.5 mg tablet 2.5 mg PO DAILY 08/28/20 01/04/23 simethicone 125 mg chewable tablet 125 mg PO TID 08/28/20 01/04/23 (Gas-X Extra Strength) cholecalciferol (vitamin D3) 50 50 mcg PO DAILY 10/25/20 01/04/23 mcg (2,000 unit) tablet (Vitamin D3) diclofenac sodium 1 % topical gel 2 g topical QID PRN Pain 10/25/20 01/04/23 docusate sodium 100 mg capsule 100 mg PO BID 10/25/20 01/04/23 (Colace) lidocaine 4 % topical patch 1 patch topical DAILY 10/25/20 01/04/23 (Salonpas (lidocaine)) multivitamin with minerals (Daily 1 tablet PO DAILY 10/25/20 01/04/23 Multivitamin-Minerals tablet) phenyleph-shark liver 1 applic RECTAL Q4H PRN Hemorrhoids 10/25/20 01/04/23 [id number] rectal cream montelukast 10 mg tablet 10 mg PO DAILY 12/09/20 01/04/23 nystatin 100,000 unit/gram topical 1 applic topical BID 12/09/20 01/04/23 powder dextran 70-hypromellose 0.1 %-0.3 2 drp ophthalmic (eye) Q12H PRN 05/20/21 01/04/23 % eye drops (GenTeal Tears Mild) Dry Eye(S) pantoprazole 40 mg tablet,delayed 40 mg PO BID 08/28/21 01/04/23 release bisacodyl 5 mg tablet 20 mg PO ONCE PRN Constipation 09/29/21 01/04/23 calcium carbonate 500 mg calcium 1,000 mg PO Q8H PRN Nausea 09/29/21 01/04/23 (1,250 mg) chewable tablet ondansetron 4 mg disintegrating 8 mg PO Q8H PRN Nausea 09/29/21 01/04/23 tablet polyethylene glycol 3350 17 gram 17 g PO DAILY PRN Constipation 09/29/21 01/04/23 oral powder packet psyllium 1 packet PO DAILY 09/29/21 01/04/23 fluoxetine 20 mg capsule (Prozac) 40 mg PO BID 03/17/22 01/04/23 mirabegron 25 mg tablet,extended 25 mg PO DAILY 03/17/22 01/04/23 release 24 hr (Myrbetriq) Allergies Allergy/AdvReac Type Severity Reaction Status Date / Time aspirin Allergy Intermediate Hives Verified 07/27/23 04:34 ibuprofen Allergy Intermediate Hives Verified 07/27/23 04:34 morphine Allergy Intermediate Hives Verified 07/27/23 04:34 NSAIDS (Non-Steroidal Allergy Intermediate Hives Verified 07/27/23 04:34 Anti-Inflamma codeine AdvReac Intermediate Headache Verified 07/27/23 04:34 sulfamethoxazole AdvReac Intermediate Hallucinati Verified 07/27/23 04:34 [From ng Sulfamethoxazole-Trimethoprim] tetracycline AdvReac Intermediate Fever Verified 07/27/23 04:34 trimethoprim AdvReac Intermediate Hallucinati Verified 07/27/23 04:34 [From ng Sulfamethoxazole-Trimethoprim] Review of Systems Review of Systems:
--- NOTE | 2023-07-27 06:13 | PC.NURSE ---
Pt requested this RN to notify daughter, Daja of her being here since she was unable to do so. This RN was unsuccessful in reaching her. Attempted to leave voicemail, but mailbox is full.
[2023-07-27] MEDS: PANTOPRAZOLE SODIUM IV 80 MG in SODIUM CHLORIDE 0.9% IV 500 ML 50 MG IV CONT (07:19)
--- NOTE | 2023-07-27 10:18 | ADMGEN ---
This patient, Solange Solorzano, was admitted to [address] [place] [address] Room 304-01 at 0900. Patient/family oriented to hospital policies and general routines including ID bracelet, bed and alarms, visiting hours, pain management, procedures, bathroom and other care routines, personal items, smoking policy, room service/diet, and visiting hours. Information on how to activate the Rapid Response Team has been discussed. Patient/Family are encouraged to report perceived risks to care and to ask questions if they do not understand what they are told or what they should do.
--- NOTE | 2023-07-27 10:20 | PC.NURSE ---
To GI lab via [employer].
--- NOTE | 2023-07-27 10:53 | WPDGICN ---
Assessment and Plan Assessment and plan (1) Coffee ground emesis: Code(s): K92.0 - Hematemesis Status: Acute Assessment and Plan: will assess with egd she has large hiatal hernia, probably esophagitis/gastritis, ulcer, etc more recommendations after egd continue with iv protonix (2) Acute GI bleeding: Code(s): K92.2 - Gastrointestinal hemorrhage, unspecified Status: Acute Assessment and Plan: monitor for more signs of bleeding (3) Vomiting: Qualifiers: Nausea presence: with nausea Vomiting type: unspecified Qualified Code(s): R11.2 - Nausea with vomiting, unspecified Code(s): R11.10 - Vomiting, unspecified Status: Acute (4) Abnormal CT scan: Code(s): R93.89 - Abnormal findings on diagnostic imaging of other specified body structures Status: Acute Assessment and Plan: noted large hiatal hernia (5) Hiatal hernia: Code(s): K44.9 - Diaphragmatic hernia without obstruction or gangrene Status: Acute GI Consult Note Consult date/time: 07/27/23 10:53 Reason for consult: coffee ground emesis HPI: Solange Solorzano is a 67 year old female who is a halfway resident and previous history of anemia that I met originally 2019 after she had abnormal CT a/p with possible apple-core lesion in right colon but I did colonoscopy that only showed small polyps, also large hemorrhoids. She also had anemia back then that required blood transfusion, EGD with 7 cm hiatal hernia and mild gastritis, otherwise no findings. Then SB capsule endoscopy negative for GI blood loss. Then she had a sigmoidoscopy in [address] scan showed prominent enhancing soft tissue lesion at the medial left gluteal fold, no major findings in sigmoidoscopy other than rectal prolapse. She also was evaluated by [facility] in [place] and recommended medical treatment. She is here because had coffee ground emesis and upper abdominal pain, about 2 weeks ago similar episode but did not come to hospital and resolved. Hgb 11.4 (previous 12.5), CT scan reviewed, Large hiatal hernia containing most of the stomach. Focal hyperintense areas within the gastric lumen at the gastric fundus region. Diagnostic considerations include active GI bleeding at the gastric fundus versus possibly hyperdense ingested material. She was given iv protonix. Review of Systems Constitutional: Constitutional: Denies headache(s) and Denies weakness Eyes: Eyes: Denies blurry vision ENT: Reports Normal hearing present, Denies headache(s) and Denies neck pain Cardiovascular: Cardiovascular: Denies chest pain and Denies dyspnea Respiratory: Respiratory: Denies dyspnea Genitourinary: Genitourinary: Denies dysuria Musculoskeletal: Musculoskeletal: Denies neck pain Integumentary/Breasts: Skin/Breast: Denies dry skin Neurologic: Reports Normal hearing present and Denies headache(s) Psychiatric: Psychiatric: Denies anxiety Endocrine: Endocrine: Denies change in body appearance Allergic/Immunologic: Allergic/Immunologic: Denies urticaria PMFSH Past Medical History Medical History (Updated 07/27/23 @ 11:20 by Shahab Beaver MD) Abdominal pain Abnormal CT scan Anemia Anxiety Bloating BMI 39.0-39.9,adult Coffee ground emesis Constipation Hemorrhoids that prolapse with straining, but retract spontaneously Hiatal hernia History of asthma History of blood clots History of COPD History of depression History of emphysema History of gastroesophageal reflux (GERD) History of heart attack History of stomach ulcers History of stroke Iron deficiency anemia Numbness of left hand Surgical History Surgical History History of delivery History of cholecystectomy History of skin graft History of tubal ligation S/P placement of cardiac pacemaker Family History Family History (Reviewed 01/04/23 @ 08:45 by
[2023-07-27] MEDS: LACTATED RINGERS 1,000 ML 150 ML IV CONT (10:55)
--- NOTE | 2023-07-27 11:09 | WPDANESEPPF ---
Anes - Initial Pre Proc Eval Procedure: Operation Date: 07/27/23 13:00 Proposed Procedures p Esophagogastroduodenoscopy - Shahab Beaver MD Date/Time: 07/27/23 11:09 Surgeon: Kristyn Alvarado MD Pre Op Diagnosis: GI BLEED Patient Data Age: 67 Gender: F Height: 1.52 m Weight: 73.9 kg Last Vital Signs Temp 97.8 F 07/27/23 10:39 Pulse 80 07/27/23 10:39 Resp 18 07/27/23 10:39 BP 107/64 07/27/23 10:39 Pulse Ox 99 07/27/23 10:39 O2 Del Method Room Air 07/27/23 10:39 Allergies Allergy/AdvReac Type Severity Reaction Status Date / Time aspirin Allergy Intermediate Hives Verified 07/27/23 04:34 ibuprofen Allergy Intermediate Hives Verified 07/27/23 04:34 morphine Allergy Intermediate Hives Verified 07/27/23 04:34 NSAIDS (Non-Steroidal Allergy Intermediate Hives Verified 07/27/23 04:34 Anti-Inflamma codeine AdvReac Intermediate Headache Verified 07/27/23 04:34 sulfamethoxazole AdvReac Intermediate Hallucinati Verified 07/27/23 04:34 [From ng Sulfamethoxazole-Trimethoprim] tetracycline AdvReac Intermediate Fever Verified 07/27/23 04:34 trimethoprim AdvReac Intermediate Hallucinati Verified 07/27/23 04:34 [From ng Sulfamethoxazole-Trimethoprim] Home Medications Medication Instructions Recorded Confirmed Type acetaminophen 500 mg tablet 1,000 mg PO TIDWMEAL 08/19/20 01/04/23 History (Tylenol Extra Strength) albuterol sulfate 90 mcg/actuation 2 puff inhalation Q4H PRN Wheezing 08/19/20 01/04/23 History aerosol inhaler atorvastatin 40 mg tablet 40 mg PO HS 08/19/20 01/04/23 History budesonide-formoterol HFA 160 2 puff inhalation Q12H 08/19/20 01/04/23 History mcg-4.5 mcg/actuation aerosol inhaler (Symbicort) ferrous sulfate 325 mg (65 mg 325 mg PO TID 08/19/20 01/04/23 History iron) tablet sucralfate 1 gram tablet (Carafate) 2 g PO BID 08/19/20 01/04/23 History apixaban 5 mg tablet (Eliquis) 5 mg PO BID 08/28/20 01/04/23 History ascorbate calcium (vitamin C) 500 500 mg PO 3XW 08/28/20 01/04/23 History mg tablet cranberry extract 250 mg tablet 250 mg PO 3XW 08/28/20 01/04/23 History gabapentin 600 mg tablet 600 mg PO TID 08/28/20 01/04/23 History (Neurontin) meclizine 25 mg tablet 25 mg PO TID PRN Dizziness 08/28/20 01/04/23 History midodrine 2.5 mg tablet 2.5 mg PO DAILY 08/28/20 01/04/23 History simethicone 125 mg chewable tablet 125 mg PO TID 08/28/20 01/04/23 History (Gas-X Extra Strength) cholecalciferol (vitamin D3) 50 50 mcg PO DAILY 10/25/20 01/04/23 History mcg (2,000 unit) tablet (Vitamin D3) diclofenac sodium 1 % topical gel 2 g topical QID PRN Pain 10/25/20 01/04/23 History docusate sodium 100 mg capsule 100 mg PO BID 10/25/20 01/04/23 History (Colace) lidocaine 4 % topical patch 1 patch topical DAILY 10/25/20 01/04/23 History (Salonpas (lidocaine)) multivitamin with minerals (Daily 1 tablet PO DAILY 10/25/20 01/04/23 History Multivitamin-Minerals tablet) phenyleph-shark liver 1 applic RECTAL Q4H PRN Hemorrhoids 10/25/20 01/04/23 History [id number] rectal cream montelukast 10 mg tablet 10 mg PO DAILY 12/09/20 01/04/23 History nystatin 100,000 unit/gram topical 1 applic topical BID 12/09/20 01/04/23 History powder linaclotide 72 mcg capsule 72 mcg PO DAILY #30 caps 03/27/21 01/04/23 Rx (Linzess) dextran 70-hypromellose 0.1 %-0.3 2 drp ophthalmic (eye) Q12H PRN 05/20/21 01/04/23 History % eye drops (GenTeal Tears Mild) Dry Eye(S) pantoprazole 40 mg tablet,delayed 40 mg PO BID 08/28/21 01/04/23 History release bisacodyl 5 mg tablet 20 mg PO ONCE PRN Constipation 09/29/21 01/04/23 History calcium carbonate 500 mg calcium 1,000 mg PO Q8H PRN Nausea 09/29/21 01/04/23 History (1,250 mg) chewable tablet ondansetron 4 mg disintegrating 8 mg PO Q8H PRN Nausea 09/29/21 01/04/23 History tablet polyethylene glycol 3350 17 gram 17 g PO DAILY PRN Constipation 09/29/21 01/04/23 History o
--- NOTE | 2023-07-27 12:00 | PC.NURSE ---
Back from GI Lab via stretcher.
[2023-07-27] MEDS: SUCRALFATE SUSP 100 MG/ML 10 ML UDC 1000 MG PO ×3 (13:57→21:27)
--- NOTE | 2023-07-27 14:40 | PM.IMHP ---
H&P: HPI History of Present Illness Date/Time: 07/27/23 15:00 Chief Complaint: Coffee ground emesis. Narrative: This is a 67-year-old female with history of peptic ulcers, GI bleed, stroke, hypertension, hyperlipidemia, DVT on anticoagulation, pacemaker, sleep apnea, depression, and anxiety who presented to the emergency department via EMS from [facility] for evaluation of ?coffee-ground emesis.? The patient provides the following history. Her stomach has been hurting for the past couple of weeks, mainly in the epigastric region with occasional radiation through to the back. It is a burning pain and is similar to when she had ulcers in the past. A few weeks ago she had a couple of episodes of dark-colored emesis but that resolved. Yesterday she once again started vomiting with reports of coffee-ground emesis and she was brought in for evaluation. Blood pressure was stable on arrival. Initial hemoglobin was 11.4. CT of the abdomen pelvis showed a large hiatal hernia containing most of the stomach and focal hyper intense areas within the gastric lumen at the fundus region which may indicate active bleeding. She was taken to the endoscopy suite and upper EGD per Dr. Beaver showed reflux esophagitis, hiatal hernia, gastritis, and Gary lesions. At the time my evaluation she is resting comfortably and does not have any specific complaints. She still has some mild abdominal discomfort. She has not had any further episodes of emesis. Review of Systems Review of Systems: Twelve systems were reviewed. No fever, chills, or sweats. No recent cold or flu symptoms. She denies chest pain shortness a breath. She has not noticed any dark stools or bright red blood in the stools. Except as documented, all other systems were reviewed and are negative. [facility] Past Medical History Medical History Anemia Anxiety Cerebrovascular accident Chronic anticoagulation Chronic obstructive pulmonary disease Deep venous thrombosis Depression Gastroesophageal reflux disease Hiatal hernia History of heart attack Iron deficiency anemia Obstructive sleep apnea Peptic ulcer Surgical History Surgical History History of delivery History of cholecystectomy History of permanent cardiac pacemaker placement History of skin graft History of tubal ligation Family History Family History Father Heart disease Emphysema/COPD Mother Breast cancer Grandparent Breast cancer Grandparent Diabetes mellitus Hypertension Social History Social History (Updated 07/28/23 @ 13:23 by Linsey Mccurdy PA-C) Social History: Surrogate medical decision maker: Aliza Blank. Codes status: Full code. Smoking status: Unknown if ever smoked Alcohol intake: never Substance use: never Substance use type: does not use Lack of Transportation: No Lack of Food: Never True Current Housing: I Have Housing Concerned About Future Housing: No Difficulty Paying Gas/Electric Bills: No Difficulty Paying for Meds: No Currently Unemployed: No Education: Decline to Answer Difficulty w/ Childcare or Family Care: No Living arrangements: retirement Additional living arrangements comments: [facility]. Occupation/Education: unemployed Spiritual care concerns: No Meds Home Medications and Allergies Home Medications Medication Instructions Recorded Confirmed Type acetaminophen 500 mg tablet 1,000 mg PO TIDWMEAL 08/19/20 07/27/23 History (Tylenol Extra Strength) albuterol sulfate 90 mcg/actuation 2 puff inhalation Q4H PRN Wheezing 08/19/20 07/27/23 History aerosol inhaler atorvastatin 40 mg tablet 40 mg PO HS 08/19/20 07/27/23 History ferrous sulfate 325 mg (65 mg 325 mg PO BID 08/19/2007/27
[2023-07-28 00:47] LABS: Hematocrit 40.4 % (37.0-47.0); Hemoglobin 12.2 g/dL (12.0-15.0)
[2023-07-28] MEDS: SUCRALFATE SUSP 100 MG/ML 10 ML UDC 1000 MG PO ×3 (05:29→16:38)
[2023-07-28 06:00] VITALS: BP 118/68; PULSE 86; RESP 18; TEMP 36.2; O2SAT 92
[2023-07-28 06:34] LABS: Hemoglobin 11.1 g/dL (12.0-15.0); Mean Corpuscular Hemoglobin 31.6 pg (26-34); Mean Corpuscular Volume 105.4 fl (80-100); Mean Platelet Volume 10.1 fl (7.4-10.4); Platelet Count Result 142 k/mm3 (150-375); Red Blood Count 3.51 M/mm3 (4.2-5.4); Red Cell Distribution Width 13.3 % (11.5-14.5); White Blood Count 5.5 K/mm3 (4.5-10.0)
[2023-07-28 06:48] LABS: Anion Gap 7 mmol/L (8-16); Blood Urea Nitrogen 24 mg/dL (7-17); Carbon Dioxide 26 mmol/L (22-30); Chloride 103 mmol/L (98-107); Estimated CRCL calculation 70 ml/min; Estimated Glomerular Filt Rate > 60; Glucose 92 mg/dL (65-110); Potassium 3.9 mmol/L (3.4-5.0); Sodium 136 mmol/L (137-145)
[2023-07-28 07:10] VITALS: PULSE 74; RESP 18; O2SAT 93
[2023-07-28] MEDS: FLUTICASONE/UMECLIDIN/VILANTER 100-62.5-25 MCG ELLIPTA 1 PUFF INHALATION (07:10)
--- NOTE | 2023-07-28 08:41 | PM.DS ---
DS: Admitting Diagnosis Discharge Date 07/28/23 Admitting Diagnosis hematemsis DS: Discharge Diagnosis Discharge Diagnosis (1) GI bleed: Code(s): K92.2 - Gastrointestinal hemorrhage, unspecified Status: Acute (2) Chronic anticoagulation: Code(s): Z79.01 - care home (current) use of anticoagulants Status: Acute (3) Gastroesophageal reflux disease: Code(s): K21.9 - Gastro-esophageal reflux disease without esophagitis Status: Acute DS: Summary Hospital Course Hospital Course: This is a 67-year-old female with history of peptic ulcers, GI bleed, stroke, hypertension, hyperlipidemia, DVT on anticoagulation, pacemaker, sleep apnea, depression, and anxiety who presented to the emergency department via EMS from [facility] for evaluation of ?coffee-ground emesis.? The patient provides the following history. Her stomach has been hurting for the past couple of weeks, mainly in the epigastric region with occasional radiation through to the back. It is a burning pain and is similar to when she had ulcers in the past. A few weeks ago she had a couple of episodes of dark-colored emesis but that resolved. Yesterday she once again started vomiting with reports of coffee-ground emesis and she was brought in for evaluation. Blood pressure was stable on arrival. Initial hemoglobin was 11.4. CT of the abdomen pelvis showed a large hiatal hernia containing most of the stomach and focal hyper intense areas within the gastric lumen at the fundus region which may indicate active bleeding. She was taken to the endoscopy suite and upper EGD per Dr. Beaver showed reflux esophagitis, hiatal hernia, gastritis, and Gary lesions. At the time my evaluation she is resting comfortably and does not have any specific complaints. She still has some mild abdominal discomfort.? She has not had any further episodes of emesis. 07/28-no acute events overnight. Patient hemoglobin is stable 11 point. No active bleeding concerns. Nursing to contact me and had concerns that should her rectum had prolapsed. According to the patient this has not happened before however she does speak about her PCP warning her to not sit on the commode for greater than 20 minutes, to not strain for stooling, and including moderate bowel regimen daily. At the time of my assessment the prolapse had reproduce itself. Only finding was external hemorrhoids. She was fecal impacted so I disimpacted her. Patient is otherwise stable and ready to discharge back to her facility today. Vital signs were within normal limits and her labs have been reviewed. I discussed with her going home on Carafate and Protonix b.i.d. for her gastritis and Gary ulcers. GI will contact her with results. Status at Discharge Cognitive/behavioral status at discharge: A&Ox4, pleasant Time Spent with Patient Time attestation: Total time spent providing and/or coordinating discharge services: 42 Exam Narrative: General: well appearing, well developed, well nourished, appears stated age. HEENT: normocephalic, atraumatic. Mucous membranes moist. EOMI, PERRLA, bilateral sclera anicteric, no conjunctival injection. Neck supple without JVD, lymphadenopathy, or bruit. Respiratory: clear to auscultation bilaterally. No rales/rhonic/wheezes. Cardiovascular: Regular rate and rhythm, normal S1-S2 upon auscultation. No murmurs, rubs, or clicks. PMI is nondisplaced, capillary re-fill less than 3 second. Abdomen: Soft, round, pannus present, no pulsatile masses, non-distended and mildly tender. No rebound, no guarding. No CVA tenderness, no hepatosplenomegaly. Bowel sounds hypoactive to all four quadrants. No high pitch or tinkling sounds, resonant to percussion. Extremities: No cyanosis, clubbing, or edema present. Pulses are palpable 2/2. Active ROM to all four extremities. Neuro: Alert and orientated x 4. PERRLA. Cranial nerves 2-12 intact without focal deficit. Skin: Warm, dry, and in
[2023-07-28] MEDS: LIDOCAINE 5% PATCH 1 PATCH TRANSDERM (08:52)
[2023-07-28] MEDS: ARIPiprazole 2 MG TABLET PO (08:52)
[2023-07-28] MEDS: MIRABEGRON 25 MG ER TABLET PO (08:52)
[2023-07-28] MEDS: CHOLECALCIFEROL 1,000 UNITS TABLET 2000 UNITS PO (08:53)
[2023-07-28] MEDS: FERROUS SULFATE 325 MG TABLET DR BY MOUTH ×2 (08:53→16:39)
[2023-07-28] MEDS: PSYLLIUM POWDER PACKET 1 PACKET PO (08:53)
[2023-07-28] MEDS: THERAPEUTIC MULTIVITAMINS/MINERALS TAB (*BKC) 1 TABLET PO (08:53)
[2023-07-28] MEDS: GABAPENTIN 300 MG CAPSULE 600 MG PO ×3 (08:53→16:38)
[2023-07-28] MEDS: MIDODRINE HCL 2.5 MG TABLET PO (08:53)
[2023-07-28] MEDS: ACETAMINOPHEN 500 MG TABLET 1000 MG PO ×3 (08:53→16:38)
[2023-07-28] MEDS: BACLOFEN 10 MG TABLET 20 MG PO ×3 (08:53→16:38)
[2023-07-28] MEDS: POTASSIUM CHLORIDE 20 MEQ ER TABLET PO (08:53)
[2023-07-28] MEDS: PANTOPRAZOLE 40 MG TABLET PO ×2 (08:54→16:39)
[2023-07-28] MEDS: MONTELUKAST SODIUM 10 MG TABLET PO (08:54)
[2023-07-28] MEDS: DOCUSATE SODIUM 100 MG CAPSULE PO ×2 (08:54→16:38)
[2023-07-28] MEDS: busPIRone HCL 10 MG TABLET PO ×2 (08:54→16:39)
[2023-07-28] MEDS: SIMETHICONE 125 MG CHEW TAB PO ×3 (08:54→16:39)
[2023-07-28] MEDS: DULoxetine HCL 30 MG CAPSULE.DR PO (08:55)
[2023-07-28] MEDS: AZELASTINE HCL NASAL 0.1% 137 MCG/SPR 30 ML BTL 1 SPRAY NASAL (08:56)
[2023-07-28] MEDS: FLUTICASONE PROPIONATE 0.05% NA SPR 16 GM BTL (*BKC) 1 SPRAY NASAL (08:56)
[2023-07-28] MEDS: TOLNAFTATE 1% POWDER 45 GM BTL 1 APPLIC TOPICAL (08:57)
--- NOTE | 2023-07-28 10:27 | WPDANESPN ---
Anes - Prog Note Post-Op Date/Time: 07/28/23 10:27 Cardiovascular status: normal Respiratory status: normal Airway patency: baseline Mental status: baseline Post-Op hydration status: normal Vital Signs: Last Vital Signs Temp 97.1 F L 07/28/23 06:00 Pulse 74 07/28/23 07:10 Resp 18 07/28/23 07:10 BP 118/68 07/28/23 06:00 Pulse Ox 93 07/28/23 07:10 O2 Del Method Room Air 07/28/23 07:10 Pain Score (VAS): 0 I/O: Intake & Output 07/27/23 07/28/23 07/28/23 23:59 07:59 15:59 Intake Total 900 50 480 Balance 900 50 480 Laboratory Tests 07/28/23 06:29 07/28/23 06:29 07/28/23 07/28/23 00:41 06:29 WBC 5.5 RBC 3.51 L Hgb 12.2 11.1 L Hct 40.4 37.0 MCV 105.4 H D MCH 31.6 MCHC 30.0 L RDW 13.3 Plt Count 142 L MPV 10.1 Sodium 136 L Potassium 3.9 Chloride 103 Carbon Dioxide 26 Anion Gap 7 L BUN 24 H Creatinine 0.60 L Estim Creat Clear Calc 70 Estimated GFR > 60 Glucose 92 Calcium 9.0 Magnesium 2.0 Post-procedural complaints: none Patient Feedback: Patient satisfied with anesthetic care.
[2023-07-28 11:54] VITALS: BMI 31.8
[2023-07-28 14:00] VITALS: BP 108/53; PULSE 75; RESP 18; TEMP 36.3; O2SAT 96
--- NOTE | 2023-07-28 15:36 | WPDGIPROGNO ---
Progress Note: A&P Assessment and Plan (1) Gary ulcer: Code(s): K25.9 - Gastric ulcer, unspecified as acute or chronic, without hemorrhage or perforation Status: Acute Assessment and Plan: found yesterday she can go back to long term, will need senior care PPI daily (2) Coffee ground emesis: Code(s): K92.0 - Hematemesis Status: Acute Assessment and Plan: resolved (3) GI bleed: Code(s): K92.2 - Gastrointestinal hemorrhage, unspecified Status: Acute (4) Hiatal hernia: Code(s): K44.9 - Diaphragmatic hernia without obstruction or gangrene Status: Acute Assessment and Plan: large size she has heart issues and probably will be high risk for hiatal hernia repair but she could talk to her PCP if interested (5) Rectal prolapse: Code(s): K62.3 - Rectal prolapse Status: Acute Assessment and Plan: treated medically, already had colonoscopy as outpatient she has seen CRS in the past Subjective Date/time seen: 07/28/23 15:36 Interval history: she is going ok, EGD yesterday showed gary ulcers with large hiatal hernia also relapsed of rectal prolapse Review of Systems Review of Systems: All systems reviewed & are unremarkable except as noted in HPI and below Exam Const: General: comfortable and no acute distress Other: chronically ill appearing HENMT: Face/Nose/Sinus: Normal nares present Eyes: General: appearance normal, both eyes and all related structures Neck: Neck: supple Resp: Auscultation: clear to auscultation bilaterally Cardio: Rate: regular rate Rhythm: regular rhythm GI: Inspection: non-distended GI Palp: Yes Soft to palpation and No Guarding due to palpation present (GI) Auscultation: normal bowel sounds Skin: General skin exam: no rashes or lesions noted Neuro: Speech: normal speech Motor exam (neuro): 5/5 motor strength present throughout Extrem: General: normal to inspection Psych: Mental Status: mental status grossly normal Objective Data Vital Signs Vital Signs: Vital Signs - 24 hr 07/27/23 22:00 07/28/23 06:00 07/28/23 07:10 Temperature 96.9 F L 97.1 F L Pulse Rate 82 86 74 Respiratory Rate 18 18 18 Blood Pressure 96/63 L 118/68 Pulse Oximetry 100 92 93 Oxygen Delivery Room Air 07/28/23 07:10 07/28/23 14:00 Temperature 97.3 F L Pulse Rate 74 75 Respiratory Rate 18 18 Blood Pressure 108/53 L Pulse Oximetry 96 Oxygen Delivery Intake/Output Intake/Output: Intake & Output 07/25/23 07/26/23 07/27/23 07/28/23 23:59 23:59 23:59 23:59 Intake Total 1540 752 Balance 1540 752 Meds/Results Medications: Active Medications Generic Name Dose Route Start Last Admin Trade Name Freq PRN Reason Stop Dose Admin Acetaminophen 1,000 mg 07/28/23 08:00 07/28/23 13:22 Acetaminophen 500 Mg Tablet PO 1,000 mg TIDWM DANI Administration Albuterol 2 puff 07/27/23 23:49 Albuterol Sulfate (*Sp) Aerosol 1 Puff INHALATION Q4H PRN Wheezing Aripiprazole 2 mg 07/28/23 09:00 07/28/23 08:52 Aripiprazole 2 Mg Tablet PO 2 mg DAILY DANI Administration Artificial Tears 2 drop 07/27/23 23:49 Artificial Tears Ophth Soln 15 Ml Bottle EACH EYE Q12H PRN Dry Eye(S) Atorvastatin Calcium 40 mg 07/28/23 21:00 Atorvastatin 40 Mg Tablet PO HS DANI Azelastine HCl 1 spray 07/28/23 09:00 07/28/23 08:56 Azelastine Hcl Nasal 0.1% 137 Mcg/Spr 30 Ml Btl NASAL 1 spray Q12HR DANI Administration Baclofen 20 mg 07/28/23 09:00 07/28/23 13:23 Baclofen 10 Mg Tablet PO 20 mg TID DANI Administration Buspirone HCl 10 mg 07/28/23 09:00 07/28/23 08:54 Buspirone Hcl 10 Mg Tablet PO 10 mg BID DANI Administration Calcium Carbonate 1,000 mg 07/27/23 23:49 Calcium Carbonate (Tums) 500 Mg (200 Mg Elemental) PO Q8H PRN Nausea Docusate Sodium 100 mg 07/28/23 09:00 07/28/23 08:54 Docus
[2023-07-28 16:08] LABS: SARS-CoV-2 RNA PCR Negative (Negative)
== END 2023-07-28 19:00 ==
LOC: ANHED 08:11 → ANH3MEDSUR 09:28
PROVIDERS: Internal Medicine Gastroenterology; Nurse Practitioner Acute Care; Physician Assistant; Admitting Provider Family Medicine; Emergency Provider Emergency Medicine; PCP Family Medicine; Visit Provider Student in an Organized Health Care Education/Training Program
PROC: 0DJ08ZZ Inspection of Upper Intestinal Tract, Via Natural or Artificial Opening Endoscopic (ICD-10-PCS; CPT 43235; principal; 2023-07-27 13:00)
DX: K25.9 Gastric ulcer, unspecified as acute or chronic, without hemorrhage or perforation (principal); K92.0 Hematemesis; K21.00 Gastro-esophageal reflux disease with esophagitis, without bleeding; K29.70 Gastritis, unspecified, without bleeding; K44.9 Diaphragmatic hernia without obstruction or gangrene; K62.3 Rectal prolapse; J43.9 Emphysema, unspecified; I25.2 Old myocardial infarction; D50.9 Iron deficiency anemia, unspecified; E78.5 Hyperlipidemia, unspecified; I10 Essential (primary) hypertension; G47.30 Sleep apnea, unspecified; F41.9 Anxiety disorder, unspecified; F32.A Depression, unspecified; K59.00 Constipation, unspecified; Z20.822 Contact with and (suspected) exposure to COVID-19; Z86.73 Personal history of transient ischemic attack (TIA), and cerebral infarction without residual deficits; Z86.718 Personal history of other venous thrombosis and embolism; Z95.0 Presence of cardiac pacemaker; Z79.51 Long term (current) use of inhaled steroids; Z79.01 Long term (current) use of anticoagulants; E66.9 Obesity, unspecified; Z68.31 Body mass index [BMI] 31.0-31.9, adult
CPT/HCPCS: 43239; 36415; 74177; 80048; 80053; 83735; 85014; 85018; 85025; 85027; 85610; 85730; 86850; 86900; 86901; 87635; 88305; 94640; 96365; 96366; 96374; 96375; 96376; 99285; A9270; C9113; G0378; J2405; J2704; J7040; J7120; Q9967

== ENCOUNTER 2023-08-28 20:50 | Emergency (ER) | payer MEDICARE, MEDICAID, SELFPAY ==
--- NOTE | ~2023-08-28 | CT_ITS ---
EXAMINATION: CT abdomen pelvis wo con DATE: 08/28/2023 21:51 INDICATION: Trauma TECHNIQUE: Computed tomography (CT) of the abdomen and pelvis was performed without intravenous contr ast. Automated exposure control and iterative reconstruction technique were employed. The dose-length product was 1150.15 mGy-cm. COMPARISON: 07/27/2023. FINDINGS: Lower thorax: Large hiatal hernia containing the gastric fundus and body. Atelectasis/scar. Partially visualized pacer leads. Liver: Dystrophic calcification near the liver dome. Biliary/Gallbladder: Gallbladder is absent. No bile duct dilation. Pancreas: No mass or duct dilation. Spleen: Normal. Adrenals:No mass. Kidneys: No suspicious mass, obstructing stone, or significant hydronephrosis. Simple right lower martin e cyst. Stable mild bilateral pelviectasis and caliectasis. GI tract: Hyperdensity in the stomach, likely ingested material. No small or large bowel dilation. Ap pendix not visualized. Mesentery/Peritoneum: No ascites, mass, or free air. Retroperitoneum: No mass. Atherosclerotic abdominal aortic and/or arterial calcifications. Pelvis: Multiple bladder diverticuli. Mild chronic bladder wall thickening may reflect chronic cystit is. Soft Tissues: Soft tissues and body wall unremarkable. Bones: No acute osseous finding. IMPRESSION: No acute abdominopelvic process detected. Reviewed, dictated and finalized at location [facility].
--- NOTE | ~2023-08-28 | CT_ITS ---
EXAMINATION: CT brain wo con DATE: 08/28/2023 21:49 INDICATION: Trauma . TECHNIQUE: Computed tomography (CT) of the head was performed without intravenous contrast. The mA wa s adjusted according to patient size. Iterative reconstruction technique was employed. The dose-lengt h product was 681.00 mGy-cm. COMPARISON: None. FINDINGS: No acute intracranial hemorrhage or extra-axial fluid collection. No hydrocephalus, mass, or herniation. No acute ischemic infarct. Unremarkable dural venous sinus attenuation. No acute osseous abnormality. Hyperostosis. Retention cyst/polyp in the right maxillary sinus, the remaining aerated spaces are clear. Mild atrophy and chronic white matter change. Mild atherosclerotic intracranial calcification. IMPRESSION: No acute intracranial process. Reviewed, dictated and finalized at location [facility].
--- NOTE | ~2023-08-28 | CT_ITS ---
EXAMINATION: CT cervical spine wo con DATE: 08/28/2023 21:51 INDICATION: Trauma neck pain TECHNIQUE: Computed tomography (CT) of the cervical spine was performed without intravenous contrast. Automated exposure control and iterative reconstruction technique were employed. The dose-length pro duct was 471.88 mGy-cm. COMPARISON: None. FINDINGS: Vertebral Body Alignment: Intact. Multilevel listheses, presumably on a degenerative basis. Craniocervical and atlantoaxial alignment: Moderate degenerative change. Alignment intact. Osseous structures/fracture: No evidence of a lytic or blastic process in the visualized spine. No e vidence of acute fracture. C3-4 fusion. Cervical soft tissues: The paraspinal soft tissues planes are maintained. Degenerative changes: Multilevel moderate degenerative disc disease. Multilevel moderate facet arthro catrina. Multilevel severe bilateral neural foraminal narrowing. Moderate central canal narrowing at C5 -6. IMPRESSION: No acute fracture or traumatic malalignment in the cervical spine. Reviewed, dictated and finalized at location [facility].
[2023-08-28 20:42] VITALS: BP 115/73; PULSE 65; PULSE 68; RESP 19; TEMP 36.7; O2SAT 100
[2023-08-28 21:00] VITALS: PULSE 68
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
[2023-08-28] MEDS: HYDROcodone/acetaminophen (*CRX) 5-325 MG TABLET 1 TAB PO (21:51)
[2023-08-28 22:52] VITALS: BP 105/68; PULSE 68; RESP 20; O2SAT 98
[2023-08-29 01:01] VITALS: BP 158/96; PULSE 69; RESP 16; O2SAT 97
[2023-08-29 01:47] VITALS: BP 112/65; PULSE 70; RESP 20; O2SAT 98
== END 2023-08-29 01:38 ==
PROVIDERS: Emergency Provider Emergency Medicine; PCP Family Medicine
DX: M54.2 Cervicalgia (principal); M25.552 Pain in left hip; J44.9 Chronic obstructive pulmonary disease, unspecified; I25.2 Old myocardial infarction; D50.9 Iron deficiency anemia, unspecified; K21.9 Gastro-esophageal reflux disease without esophagitis; K44.9 Diaphragmatic hernia without obstruction or gangrene; G47.33 Obstructive sleep apnea (adult) (pediatric); F32.A Depression, unspecified; F41.9 Anxiety disorder, unspecified; Z95.0 Presence of cardiac pacemaker; Z86.73 Personal history of transient ischemic attack (TIA), and cerebral infarction without residual deficits; Z86.718 Personal history of other venous thrombosis and embolism; Z87.11 Personal history of peptic ulcer disease; Z90.49 Acquired absence of other specified parts of digestive tract; Z79.82 Long term (current) use of aspirin; V00.818A Other accident with wheelchair (powered), initial encounter
CPT/HCPCS: 70450; 72125; 74176; 99284; A9270

== ENCOUNTER 2023-12-09 22:16 | Emergency (ER) | payer MEDICARE, MEDICAID, SELFPAY ==
--- NOTE | ~2023-12-09 | XR_ITS ---
Portable chest x-ray Comparison: None Clinical History: Cough Findings: Lungs are clear, without focal consolidation or pleural effusion. Cardiomediastinal silho uette is stable, with pacemaker device. Possible hiatal hernia. Marked chronic apparent remodeling of the bilateral humeral heads is present, versus chronic bilateral fracture deformities. Impression: Clear lungs. Possible hiatal hernia. Reviewed, dictated and finalized at [facility]. COATER Impression: Clear lungs. Possible hiatal hernia.
[2023-12-09 22:27] VITALS: BP 106/85; PULSE 82; RESP 16; O2SAT 97
[2023-12-10] VITALS (7 sets, daily range): BP systolic 136–142; BP diastolic 70–94; PULSE 74–98; RESP 16–20; O2SAT 86–98
--- NOTE | 2023-12-10 01:28 | ECG_ITS ---
Measurements Intervals [place] Rate: 69 P: 88 TX: 288 QRS: 6 QRSD: 71 T: 35 QT: 377 QTc: 406 Interpretive Statements SINUS RHYTHM WITH FIRST DEGREE AV BLOCK OTHERWISE UNREMARKABLE ECG NO PREVIOUS ECG AVAILABLE FOR COMPARISON Electronically Signed On 12-10-2023 7:14:23 [employer] by Will Bauer M.D.
--- NOTE | 2023-12-10 02:09 | ED.SOB ---
HPI - SOB/Dyspnea General Chief Complaint: Shortness of Breath/Dyspnea Stated Complaint: N/V/SOB, poss aspiration Time Seen by Provider: 12/10/23 01:38 History of Present Illness HPI Narrative: patient is a 68-year-old female with history of COPD, GI bleed, GERD presenting with shortness of breath. Patient is coming from a nursing facility. She reportedly had several episodes of vomiting earlier today and they were concerned for aspiration. Patient states that she has had a cough and has felt somewhat short of breath for the last day with intermittent chest pain. States that she also has lower abdominal pain and she did have several episodes of vomiting earlier. States that sometimes she has pain when she pees. Related Data Home Medications Medication Instructions Recorded Confirmed acetaminophen 500 mg tablet 1,000 mg PO TIDWMEAL 08/19/20 07/27/23 (Tylenol Extra Strength) albuterol sulfate 90 mcg/actuation 2 puff inhalation Q4H PRN Wheezing 08/19/20 07/27/23 aerosol inhaler atorvastatin 40 mg tablet 40 mg PO HS 08/19/20 07/27/23 ferrous sulfate 325 mg (65 mg 325 mg PO BID 08/19/20 07/27/23 iron) tablet sucralfate 1 gram tablet (Carafate) 2 g PO BID 08/19/20 07/27/23 ascorbate calcium (vitamin C) 500 500 mg PO 3XW 08/28/20 07/27/23 mg tablet cranberry extract 250 mg tablet 250 mg PO 3XW 08/28/20 07/27/23 gabapentin 600 mg tablet 600 mg PO TID 08/28/20 07/27/23 (Neurontin) meclizine 25 mg tablet 25 mg PO TID PRN Dizziness 08/28/20 07/27/23 midodrine 2.5 mg tablet 2.5 mg PO DAILY 08/28/20 07/27/23 simethicone 125 mg chewable tablet 125 mg PO QID 08/28/20 07/27/23 (Gas-X Extra Strength) cholecalciferol (vitamin D3) 50 50 mcg PO DAILY 10/25/20 07/27/23 mcg (2,000 unit) tablet (Vitamin D3) docusate sodium 100 mg capsule 100 mg PO BID 10/25/20 07/27/23 (Colace) lidocaine 4 % topical patch 1 patch topical DAILY 10/25/20 07/27/23 (Salonpas (lidocaine)) multivitamin with minerals (Daily 1 tablet PO DAILY 10/25/20 07/27/23 Multivitamin-Minerals tablet) phenyleph-shark liver 1 applic RECTAL Q4H PRN Hemorrhoids 10/25/20 07/27/23 [id number]-hbggda-wmr rectal cream montelukast 10 mg tablet 10 mg PO DAILY 12/09/20 07/27/23 nystatin 100,000 unit/gram topical 1 applic topical BID 12/09/20 07/27/23 powder dextran 70-hypromellose 0.1 %-0.3 2 drp ophthalmic (eye) Q12H PRN 05/20/21 07/27/23 % eye drops (GenTeal Tears Mild) Dry Eye(S) pantoprazole 40 mg tablet,delayed 40 mg PO BID 08/28/21 07/27/23 release calcium carbonate 500 mg calcium 1,000 mg PO Q8H PRN Nausea 09/29/21 07/27/23 (1,250 mg) chewable tablet ondansetron 4 mg disintegrating 8 mg PO Q8H PRN Nausea 09/29/21 07/27/23 tablet polyethylene glycol 3350 17 gram 17 g PO DAILY PRN Constipation 09/29/21 07/27/23 oral powder packet psyllium 1 packet PO DAILY 09/29/21 07/27/23 mirabegron 25 mg tablet,extended 25 mg PO DAILY 03/17/22 07/27/23 release 24 hr (Myrbetriq) apixaban 2.5 mg tablet (Eliquis) 2.5 mg PO BID 07/27/23 07/27/23 aripiprazole 2 mg tablet 2 mg PO DAILY 07/27/23 07/27/23 azelastine 137 mcg-fluticasone 50 1 spray intranasal BID 07/27/23 07/27/23 mcg/spray nasal spray baclofen 20 mg tablet 20 mg PO TID 07/27/23 07/27/23 buspirone 10 mg tablet 10 mg PO BID 07/27/23 07/27/23 duloxetine 30 mg capsule,delayed 30 mg PO DAILY 07/27/23 07/27/23 release fluticasone fur. 100 mcg-umeclid 1 inh inhalation DAILY 07/27/23 07/27/23 62.5 mcg-vilant 25 mcg inhalat.powder (Trelegy Ellipta) potassium chloride 20 mEq 20 meq PO DAILY 07/27/23 07/27/23 tablet,extended release(part/cryst) Allergies Allergy/AdvReac Type Severity Reaction Status Date / Time aspirin Allergy Intermediate Hives Verified 08/28/23 21:09 ibuprofen Allergy Intermediate Hives Verified 08/28/23 21:09 morphine Allergy Intermediate Hives Verified 08/28/23 21:09 NSAIDS (Non-Steroidal Allergy Intermediate Hives Verified 08/28/23 21:09 Anti-Inflamma codeine AdvReac Inte
[2023-12-10 02:14] LABS: Appearance Urine Clear (Clear); Bacteria Urine 4+ /hpf; Bilirubin Urine Negative (Negative); Blood Urine Trace (Negative); Color Urine Yellow (Yellow); Glucose Urine UA Negative (Negative); Ketones Urine Negative (Negative); Leukocyte Esterase Ur 3+ LEU/UL (Negative); Need Manual Microscopic Reviewed; Nitrate Urine Positive (Negative); Non Pathogenic Casts 0-2; Protein Urine Negative (Negative); RBC Urine 0-2 /hpf (0-2); Specific Grav Ur 1.005 (1.001-1.035); Squamous Epithelial Cell Urine None seen /hpf (Few); Urobilinogen Urine 0.2 mg/dL (<2.0); WBC Urine 51-100 /hpf; pH Urine 5.5 (5.0-9.0)
[2023-12-10 02:15] LABS: Add Urine Microscopic? YES
[2023-12-10] MEDS: IPRATROPIUM BR 0.02% INH SOLN 0.5 MG/2.5 ML VIAL INHALATION (02:16)
[2023-12-10] MEDS: ALBUTEROL SULFATE NEB 2.5 MG/3 ML INH 10 MG INHALATION (02:16)
[2023-12-10 02:45] LABS: Basophils Percent Auto 0.3 % (0.2-1.2); Eosinophils Absolute Auto 0.6 K/mm3 (0-0.3); Eosinophils Percent Auto 9.9 % (0-4.4); Hematocrit 38.1 % (37.0-47.0); Hemoglobin 12.1 g/dL (12.0-15.0); Immature Granulocyte Absolute 0.01 K/mm3 (0.00-0.031); Immature Granulocyte Percent A 0.2 % (0-0.5); Lymphocytes Absolute Auto 1.73 K/mm3 (0.9-3.2); Lymphocytes Percent Auto 28.6 % (18.3-44.2); Mean Corpuscular HGB Conc 31.8 g/dl (32-36); Mean Corpuscular Hemoglobin 29.2 pg (26-34); Mean Corpuscular Volume 91.8 fl (80-100); Mean Platelet Volume 9.6 fl (7.4-10.4); Monocytes Absolute Auto 0.3 K/mm3 (0.1-0.6); Monocytes Percent Auto 5.6 % (2.6-8.5); Neutrophils Absolute Auto 3.3 K/mm3 (1.3-6.7); Neutrophils Percent Auto 55.4 % (45.5-73.1); Platelet Count Result 235 k/mm3 (150-375); Red Blood Count 4.15 M/mm3 (4.2-5.4); Red Cell Distribution Width 14.1 % (11.5-14.5)
[2023-12-10 03:00] LABS: Lipase 128 U/L (23-300)
[2023-12-10 03:02] LABS: Alanine Aminotransferase 21 U/L (6-35); Albumin Level 4.1 g/dL (3.5-5.1); Alkaline Phosphatase 133 U/L (38-126); Anion Gap 8 mmol/L (8-16); Aspartate Amino Transferase 33 U/L (14-36); Bilirubin,Total 0.5 mg/dL (0.2-1.3); Blood Urea Nitrogen 16 mg/dL (7-17); Calcium 9.5 mg/dL (8.4-10.2); Carbon Dioxide 33 mmol/L (22-30); Chloride 98 mmol/L (98-107); Estimated Glomerular Filt Rate > 60; Glucose 103 mg/dL (65-110); Potassium 3.8 mmol/L (3.4-5.0); Sodium 139 mmol/L (137-145)
[2023-12-10 03:13] LABS: NT Pro B Type Natriuretic Pept 52 pg/mL (19.9-100); Troponin I < 0.012 ng/mL (0.000-0.034)
[2023-12-10 03:22] LABS: Influenza A QL RT-PCR Negative (Negative); Influenza B QL RT-PCR Negative (Negative); RSV RNA, RT-PCR Negative (Negative); SARS-CoV-2 RNA PCR Negative (Negative)
[2023-12-10 03:43] LABS: Prothrombin Time 13.4 Seconds (11.1-14.7)
[2023-12-10 03:44] LABS: Partial Thromboplastin Time 31.3 SECONDS (22.3-36.8)
--- NOTE | 2023-12-10 04:22 | PC.NURSE ---
Patient's oxygen saturation decreases to 86% when she is sleeping; placed on 2 LPM of supplemental oxygen with improvement of saturation.
[2023-12-10 07:24] LABS: Troponin I < 0.012 ng/mL (0.000-0.034)
[2023-12-10] MEDS: AMOXICILLIN/CLAVULANATE K 875-125 MG TAB 1 TABLET PO (07:58)
[2023-12-10] MEDS: predniSONE 20 MG TABLET 40 MG PO (07:58)
[2023-12-10] MEDS: AZITHROMYCIN 250 MG TABLET 500 MG PO (07:58)
--- NOTE | 2023-12-10 08:55 | PC.NURSE ---
Report given to Michelle Baer RN. States transport will come to pick her up
== END 2023-12-10 09:22 ==
PROVIDERS: Emergency Provider Emergency Medicine; PCP Family Medicine
DX: J44.89 Other specified chronic obstructive pulmonary disease (principal); N39.0 Urinary tract infection, site not specified; Z20.822 Contact with and (suspected) exposure to COVID-19; I25.2 Old myocardial infarction; D50.9 Iron deficiency anemia, unspecified; G47.33 Obstructive sleep apnea (adult) (pediatric); K21.9 Gastro-esophageal reflux disease without esophagitis; Z95.0 Presence of cardiac pacemaker; Z86.73 Personal history of transient ischemic attack (TIA), and cerebral infarction without residual deficits; Z86.718 Personal history of other venous thrombosis and embolism; Z87.11 Personal history of peptic ulcer disease; Z90.49 Acquired absence of other specified parts of digestive tract; Z79.01 Long term (current) use of anticoagulants
CPT/HCPCS: 36415; 71045; 80053; 81001; 83690; 83880; 84484; 85025; 85610; 85730; 87086; 87186; 87637; 93005; 94640; 99284; A9270; J7512

== ENCOUNTER 2024-02-05 13:10 | Emergency (ER) | payer MEDICARE, MEDICAID, SELFPAY ==
--- NOTE | ~2024-02-05 | XR_ITS ---
EXAMINATION: XR chest 1V portable DATE: 02/05/2024 13:40 INDICATION: Chest pain. TECHNIQUE: A single frontal view of the chest was obtained. COMPARISON: Chest single view 12/10/2023, CT abdomen and pelvis 08/28/2023 FINDINGS: There is mild atelectasis in left lower lung zone. No pleural effusion or pneumothorax. The heart size is normal. There is a left chest wall pacer with leads in the right atrium and right vent ricle. There is a large hiatal hernia. There are chronic fracture deformities of the humeral heads. IMPRESSION: 1. Mild atelectasis in left lower lung zone. 2. Large hiatal hernia. Reviewed, dictated and finalized at location E.
--- NOTE | 2024-02-05 13:17 | ECG_ITS ---
Measurements Intervals [place] Rate: 70 P: 98 IA: 294 QRS: 14 QRSD: 70 T: 45 QT: 350 QTc: 378 Interpretive Statements SINUS RHYTHM WITH FIRST DEGREE AV BLOCK BASELINE ARTIFACT- I, II, AVR, AVL, AVF BORDERLINE ECG COMPARED TO ECG 12/10/2023 02:02:02 NO SIGNIFICANT CHANGES Electronically Signed On 02-05-2024 16:56:12 CDT by Alex Cooper D.O.
[2024-02-05 13:29] VITALS: BP 117/78; PULSE 72; RESP 16; TEMP 36.9; O2SAT 96
[2024-02-05 13:55] VITALS: PULSE 74; O2SAT 95
[2024-02-05 14:08] LABS: Basophils Absolute Auto 0.1 K/mm3 (0.0-0.1); Basophils Percent Auto 0.6 % (0.2-1.2); Eosinophils Absolute Auto 0.8 K/mm3 (0-0.3); Eosinophils Percent Auto 9.6 % (0-4.4); Hematocrit 37.5 % (37.0-47.0); Hemoglobin 11.6 g/dL (12.0-15.0); Immature Granulocyte Absolute 0.02 K/mm3 (0.00-0.031); Immature Granulocyte Percent A 0.2 % (0-0.5); Lymphocytes Absolute Auto 1.44 K/mm3 (0.9-3.2); Lymphocytes Percent Auto 17.6 % (18.3-44.2); Mean Corpuscular HGB Conc 30.9 g/dl (32-36); Mean Corpuscular Hemoglobin 29.4 pg (26-34); Mean Corpuscular Volume 95.2 fl (80-100); Mean Platelet Volume 9.9 fl (7.4-10.4); Monocytes Absolute Auto 0.6 K/mm3 (0.1-0.6); Monocytes Percent Auto 7.2 % (2.6-8.5); Neutrophils Absolute Auto 5.3 K/mm3 (1.3-6.7); Neutrophils Percent Auto 64.8 % (45.5-73.1); Platelet Count Result 270 k/mm3 (150-375); Red Blood Count 3.94 M/mm3 (4.2-5.4); Red Cell Distribution Width 13.8 % (11.5-14.5); White Blood Count 8.2 K/mm3 (4.5-10.0)
[2024-02-05 14:16] LABS: Anion Gap 2 mmol/L (4-12); Blood Urea Nitrogen 11 mg/dL (7-17); Calcium 9.4 mg/dL (8.4-10.2); Carbon Dioxide 33 mmol/L (22-30); Chloride 101 mmol/L (98-107); Estimated Glomerular Filt Rate > 60; Glucose 83 mg/dL (65-110); Potassium 4.2 mmol/L (3.4-5.0); Sodium 136 mmol/L (137-145)
[2024-02-05 15:12] LABS: Troponin I < 0.012 ng/mL (0.000-0.034)
--- NOTE | 2024-02-05 15:24 | ED.CHESTPAIN ---
HPI - Chest Pain General Chief Complaint: Chest Pain Stated Complaint: chest pain Time Seen by Provider: 02/05/24 13:27 History of Present Illness HPI narrative: Patient presenting here with chest pain [place] [facility] This morning, states that he was going down her arm, since arrival here she states that this symptoms have stopped. She has no other complaints at this time. Related Data Home Medications Medication Instructions Recorded Confirmed acetaminophen 500 mg tablet 1,000 mg PO TIDWMEAL 08/19/20 07/27/23 (Tylenol Extra Strength) albuterol sulfate 90 mcg/actuation 2 puff inhalation Q4H PRN Wheezing 08/19/20 07/27/23 aerosol inhaler atorvastatin 40 mg tablet 40 mg PO HS 08/19/20 07/27/23 ferrous sulfate 325 mg (65 mg 325 mg PO BID 08/19/20 07/27/23 iron) tablet sucralfate 1 gram tablet (Carafate) 2 g PO BID 08/19/20 07/27/23 ascorbate calcium (vitamin C) 500 500 mg PO 3XW 08/28/20 07/27/23 mg tablet cranberry extract 250 mg tablet 250 mg PO 3XW 08/28/20 07/27/23 gabapentin 600 mg tablet 600 mg PO TID 08/28/20 07/27/23 (Neurontin) meclizine 25 mg tablet 25 mg PO TID PRN Dizziness 08/28/20 07/27/23 midodrine 2.5 mg tablet 2.5 mg PO DAILY 08/28/20 07/27/23 simethicone 125 mg chewable tablet 125 mg PO QID 08/28/20 07/27/23 (Gas-X Extra Strength) cholecalciferol (vitamin D3) 50 50 mcg PO DAILY 10/25/20 07/27/23 mcg (2,000 unit) tablet (Vitamin D3) docusate sodium 100 mg capsule 100 mg PO BID 10/25/20 07/27/23 (Colace) lidocaine 4 % topical patch 1 patch topical DAILY 10/25/20 07/27/23 (Salonpas (lidocaine)) multivitamin with minerals (Daily 1 tablet PO DAILY 10/25/20 07/27/23 Multivitamin-Minerals tablet) phenyleph-shark liver 1 applic RECTAL Q4H PRN Hemorrhoids 10/25/20 07/27/23 [id number] rectal cream montelukast 10 mg tablet 10 mg PO DAILY 12/09/20 07/27/23 nystatin 100,000 unit/gram topical 1 applic topical BID 12/09/20 07/27/23 powder dextran 70-hypromellose 0.1 %-0.3 2 drp ophthalmic (eye) Q12H PRN 05/20/21 07/27/23 % eye drops (GenTeal Tears Mild) Dry Eye(S) pantoprazole 40 mg tablet,delayed 40 mg PO BID 08/28/21 07/27/23 release calcium carbonate 500 mg calcium 1,000 mg PO Q8H PRN Nausea 09/29/21 07/27/23 (1,250 mg) chewable tablet ondansetron 4 mg disintegrating 8 mg PO Q8H PRN Nausea 09/29/21 07/27/23 tablet polyethylene glycol 3350 17 gram 17 g PO DAILY PRN Constipation 09/29/21 07/27/23 oral powder packet psyllium 1 packet PO DAILY 09/29/21 07/27/23 mirabegron 25 mg tablet,extended 25 mg PO DAILY 03/17/22 07/27/23 release 24 hr (Myrbetriq) apixaban 2.5 mg tablet (Eliquis) 2.5 mg PO BID 07/27/23 07/27/23 aripiprazole 2 mg tablet 2 mg PO DAILY 07/27/23 07/27/23 azelastine 137 mcg-fluticasone 50 1 spray intranasal BID 07/27/23 07/27/23 mcg/spray nasal spray baclofen 20 mg tablet 20 mg PO TID 07/27/23 07/27/23 buspirone 10 mg tablet 10 mg PO BID 07/27/23 07/27/23 duloxetine 30 mg capsule,delayed 30 mg PO DAILY 07/27/23 07/27/23 release fluticasone fur. 100 mcg-umeclid 1 inh inhalation DAILY 07/27/23 07/27/23 62.5 mcg-vilant 25 mcg inhalat.powder (Trelegy Ellipta) potassium chloride 20 mEq 20 meq PO DAILY 07/27/23 07/27/23 tablet,extended release(part/cryst) Allergies Allergy/AdvReac Type Severity Reaction Status Date / Time aspirin Allergy Intermediate Hives Verified 08/28/23 21:09 ibuprofen Allergy Intermediate Hives Verified 08/28/23 21:09 morphine Allergy Intermediate Hives Verified 08/28/23 21:09 NSAIDS (Non-Steroidal Allergy Intermediate Hives Verified 08/28/23 21:09 Anti-Inflamma codeine AdvReac Intermediate Headache Verified 08/28/23 21:09 sulfamethoxazole AdvReac Intermediate Hallucinati Verified 08/28/23 21:09 [From ng Sulfamethoxazole-Trimethoprim] tetracycline AdvReac Intermediate Fever Verified 08/28/23 21:09 trimethoprim AdvReac Intermediate Hallucinati Verified 08/28/23 21:09 [From ng Sulfamethoxazo
[2024-02-05 15:26] VITALS: BP 117/57; PULSE 77; RESP 17; TEMP 36.4; O2SAT 93
[2024-02-05 15:51] LABS: Appearance Urine Clear (Clear); Bacteria Urine 4+ /hpf; Bilirubin Urine Negative (Negative); Blood Urine Trace (Negative); Color Urine Yellow (Yellow); Glucose Urine UA Negative (Negative); Ketones Urine Negative (Negative); Leukocyte Esterase Ur 2+ LEU/UL (Negative); Nitrate Urine Positive (Negative); Non Pathogenic Casts 0-2; Protein Urine Negative (Negative); RBC Urine 0-2 /hpf (0-2); Specific Grav Ur 1.011 (1.001-1.035); Squamous Epithelial Cell Urine None Seen /hpf (Few); Urobilinogen Urine 0.2 mg/dL (<2.0); WBC Urine 21-50 /hpf (0-3); pH Urine 5.5 (5.0-9.0)
[2024-02-05 15:57] LABS: Add Urine Microscopic? YES
[2024-02-05 16:00] VITALS: BP 118/66; PULSE 77; RESP 18; TEMP 36.6; O2SAT 95
[2024-02-05 16:50] VITALS: BP 138/86; PULSE 81; RESP 18; TEMP 36.8; O2SAT 97
== END 2024-02-05 16:50 | disposition home or self-care (01) ==
PROVIDERS: Emergency Provider Emergency Medicine; PCP Family Medicine
DX: R07.9 Chest pain, unspecified (principal); N39.0 Urinary tract infection, site not specified; B96.89 Other specified bacterial agents as the cause of diseases classified elsewhere; I25.10 Atherosclerotic heart disease of native coronary artery without angina pectoris; J44.9 Chronic obstructive pulmonary disease, unspecified; Z86.718 Personal history of other venous thrombosis and embolism; K21.9 Gastro-esophageal reflux disease without esophagitis; I25.2 Old myocardial infarction; D50.9 Iron deficiency anemia, unspecified; Z95.0 Presence of cardiac pacemaker; F41.9 Anxiety disorder, unspecified; Z79.01 Long term (current) use of anticoagulants
CPT/HCPCS: 36415; 71045; 80048; 81001; 84484; 85025; 87077; 87086; 87088; 87186; 93005; 99284